=== PATIENT | female | born 1960 | race Caucasian/White ===

== ENCOUNTER → 2016-05-06 | Outpatient (CLI) | payer OTHER ==
--- NOTE | 2016-05-06 17:30 | MR ---
EXAMINATION TYPE: MR lumbar spine wo con DATE OF EXAM: 05/06/2016 9:18 AM COMPARISON: NONE HISTORY: Low back pain TECHNIQUE: Multiplanar, multisequence images of the lumbar spine were acquired. L1-L2: Normal disc appearance without desiccation. No herniation, protrusion or disc bulging. No ca nal stenosis is present. Foramina are patent bilaterally. L2-L3: Moderate degenerative disc disease and broad-based right paracentral and far right lateral dis c protrusion. There is moderate right-sided foraminal encroachment with possible nerve root compressi on. L3-L4: Facet arthropathy and degenerative disc disease with Schmorl's nodes. Circumferential disc bul ging with mild bilateral foraminal encroachment but no canal stenosis or focal herniation. L4-L5: Circumferential disc bulging and facet arthropathy with ligamentum flavum hypertrophy. Mild bi lateral foraminal encroachment. Borderline canal stenosis. L5-S1: Normal disc appearance without desiccation. No herniation, protrusion or disc bulging. No ca nal stenosis is present. Foramina are patent bilaterally. Mild hypertrophic change of the facets Lumbar segments are intact. No paraspinal masses are identified. Conus medullaris has a normal appe arance. Multiple gallstones incidentally noted. IMPRESSION: 1. Disc broad-based protrusion L2-L3 paracentrally and laterally to the right resulting in mass effec t upon the nerve root within the right neural foramina. Correlate for radiculopathy at this level. 2. Disc bulging L3-4 and L4-L5 with borderline canal stenosis L4-5. Bilateral mild foraminal encroach ment at both levels. 3. Cholelithiasis
== END | disposition home or self-care (01) ==
LOC: RADMRIMAIN 08:10
PROVIDERS: ATTEND Orthopaedic Surgery Orthopaedic Surgery of the Spine
DX: M48.06 Spinal stenosis, lumbar region (principal); M99.73 Connective tissue and disc stenosis of intervertebral foramina of lumbar region; M51.16 Intervertebral disc disorders with radiculopathy, lumbar region
CPT/HCPCS: 72148

== ENCOUNTER 2016-10-16 08:34 | Emergency (ER) | payer OTHER ==
[2016-10-16 08:45] VITALS: BP 134/76; PULSE 83; RESP 18; TEMP 98.7
--- NOTE | 2016-10-16 09:08 | ED ---
General Adult HPI - General Chief complaint: Extremity Injury, Lower Stated complaint: Back Pain, muscle spasms Time Seen by Provider: 10/16/16 08:37 Source: patient, RN notes reviewed Mode of arrival: EMS Limitations: no limitations - History of Present Illness Initial comments: Patient 56-year-old female who presents emergency room today with a chief complaint of increased right hip pain. She does admit this is been ongoing over the last few weeks. Denies any injury or trauma to the area. Does admit that she had an MRI back in May of her lower back. States she feels pain that radiates down the right leg with some numbness and tingling down to her toes. She does admit that she has sensation but feels different compared to the other side. Denies any bowel or bladder incontinence retention. Denies any saddle anesthesia. Does admit the pain is worse with certain movements of flexion and extension at the right hip. Patient states was having increased pain this morning and did take one of her 's Flexeril and Liberty which did give her some relief. She states she's much more comfortable at this time currently rating her pain 4/10. She states tonight wanting any further medications at this time. Patient also admits that she did make an appointment with her orthopedic doctor and has an appointment at 10:30 this morning and would like to make that appointment. Patient denies any recent fever, chills, shortness of breath, chest pain, abdominal pain, nausea or vomiting, dysuria or hematuria, constipation or diarrhea, headaches or visual changes, or any other complaints. - Related Data Home Medications Medication Instructions Recorded Confirmed FLUoxetine HCL [PROzac] 80 mg PO DAILY 10/16/16 10/16/16 Insulin Glargine,Hum.rec.anlog 20 units SQ HS 10/16/16 10/16/16 [Jojo Valero] Losartan (Unknown Dose) 1 tab PO DAILY 10/16/16 10/16/16 Rosuvastatin Calcium [Crestor] 5 mg PO DAILY 10/16/16 10/16/16 metFORMIN HCL 1,000 mg PO BID 10/16/16 10/16/16 Allergies Allergy/AdvReac Type Severity Reaction Status Date / Time No Known Allergies Allergy Verified 10/16/16 09:10 Review of Systems ROS Statement: Those systems with pertinent positive or pertinent negative responses have been documented in the HPI. ROS Other: All systems not noted in ROS Statement are negative. Past Medical History Past Medical History: Diabetes Mellitus, Hyperlipidemia, Hypertension History of Any Multi-Drug Resistant Organisms: None Reported Past Surgical History: No Surgical Hx Reported Past Psychological History: No Psychological Hx Reported Smoking Status: Never smoker Past Alcohol Use History: Rare Past Drug Use History: None Reported General Exam - General Exam Comments Initial Comments: General: The patient is awake and alert, in no distress, and does not appear acutely ill. Eye: Pupils are equal, round and reactive to light, extra-ocular movements are intact. No nystagmus. There is normal conjunctiva bilaterally. No signs of icterus. Ears, nose, mouth and throat: There are moist mucous membranes and no oral lesions. Neck: The neck is supple, there is no tenderness or JVD. Cardiovascular: There is a regular rate and rhythm. No murmur, rub or gallop is appreciated. Respiratory: Lungs are clear to auscultation, respirations are non-labored, breath sounds are equal. No wheezes, stridor, rales, or rhonchi. Musculoskeletal: Normal ROM, no tenderness. No appearance of thoracic and lumbar spine with no step-offs forms is appreciated. No tenderness in the midline of the spinous processes. Patient does have mild tenderness paravertebrally to the right lower lumbar. Strength 5/5. Sensation intact. Pulses equal bilaterally 2+. Neurological: A&O x 3. CN II-XII intact, There are no obvious motor or sensory deficits. Coordination appears grossly intact. Speech is normal. Skin: Skin is warm and dry and no rashes or lesions are noted. Psychiatric: Cooperative, appropriate mood & affect, normal judgment. Limitations: no limitations Course Vital Signs 10/16/16 08:40 Temperature 98.7 F Pulse Rate 83 Respiratory 18 Rate Blood Pressure 134/76 O2 Sat by Pulse 97 Oximetry Medical Decision Making - Medical Decision Making Case discussed in detail with attending physician Dr. Bryson. X-ray reviewed and negative for any acute fracture dislocation. Patient does have an appointment with orthopedic doctor in less than an hour. Will be discharged advised follow- up with orthopedics for further evaluation. Patient states understanding and is in agreement. Disposition Clinical Impression: Hip pain Disposition: HOME SELF-CARE Condition: Good Instructions: Hip Pain (ED) Additional Instructions: Please follow-up with orthopedic physician appointment today. Please return to emergency room if the symptoms increase or worsen or for any other concerns. Referrals: Diane Chairez DO [Primary Care Provider] - 1-2 days Time of Disposition: 09:36
--- NOTE | 2016-10-16 09:52 | XR ---
EXAMINATION TYPE: XR Hip RT and AP Pelvis , 3 VIEWS DATE OF EXAM ORDERED: 10/16/2016 HISTORY: Pain. FINDINGS: No fracture, dislocation or other acute osseous lesion is seen. There is vascular calcifica tion. There is mild degenerative change within the hip.. IMPRESSION: NO ACUTE OSSEOUS LESION.
== END 2016-10-16 09:48 | disposition home or self-care (01) ==
LOC: EC 08:34
DX: M25.551 Pain in right hip (principal); M54.9 Dorsalgia, unspecified; R20.0 Anesthesia of skin; E78.5 Hyperlipidemia, unspecified; E11.9 Type 2 diabetes mellitus without complications; I10 Essential (primary) hypertension; Z79.4 Long term (current) use of insulin; Z79.899 Other long term (current) drug therapy; Z79.84 Long term (current) use of oral hypoglycemic drugs
CPT/HCPCS: 73502; 99284

== ENCOUNTER → 2019-10-27 | Outpatient (CLI) | payer BC ==
--- NOTE | 2019-10-30 09:53 | MM ---
Reason for exam: screening (asymptomatic). Last mammogram was performed 6 years and 9 months ago. History: Patient is postmenopausal and had first child at age 31. Benign stereotactic core biopsy of the right breast, May 18, 2003. Core biopsy of the right breast. Took hormonal contraceptives for 17 years. Physical Findings: A clinical breast exam by your physician is recommended on an annual basis and results should be correlated with mammographic findings. MG Screening Mammo w CAD Bilateral CC and MLO view(s) were taken. Prior study comparison: January 31, 2013, bilateral digital screening mammo w/CAD. September 26, 2007, bilateral digital screening mammogram. The breast tissue is heterogeneously dense. This may lower the sensitivity of mammography. Finding: There are indeterminate, suspicious calcifications in both breasts, 8-9cm from the nipple on left breast and 8cm from the nipple on right breast. ASSESSMENT: Incomplete: need additional imaging evaluation, BI-RAD 0 RECOMMENDATION: Special view mammogram of both breasts. [facility] will attempt to contact patient to return for supplemental views.
== END | disposition home or self-care (01) ==
LOC: RADMAMWWP 08:56
PROVIDERS: ATTEND Family Medicine
DX: Z12.31 Encounter for screening mammogram for malignant neoplasm of breast (principal)
CPT/HCPCS: 77067

== ENCOUNTER → 2019-11-13 | Outpatient (CLI) | payer BC ==
--- NOTE | 2019-11-13 15:02 | MM ---
Reason for exam: additional evaluation requested from abnormal screening. Last mammogram was performed 1 month ago. History: Patient is postmenopausal and had first child at age 31. Benign stereotactic core biopsy of the right breast, May 18, 2003. Core biopsy of the right breast. Took hormonal contraceptives for 17 years. Physical Findings: Nurse did not find any significant physical abnormalities on exam. MG Work Up Mamm w CAD BILAT Bilateral CC with magnification, LM with magnification, and LM view(s) were taken. Prior study comparison: October 27, 2019, bilateral MG screening mammo w CAD. January 31, 2013, bilateral digital screening mammo w/CAD. Finding: There is persistent new heterogeneous calcifications in the lower inner quadrant, middle position of the left breast. Right grouped calcifications course margins increased in number but suspected benign dystrophic calcifications. These results were verbally communicated with the patient and result sheet given to the patient on 11/13/19. ASSESSMENT: Probably benign, BI-RAD 3 finding in the right breast. Suspicious, BI-RAD 4 abnormality in the left breast. RECOMMENDATION: Stereotactic core biopsy of the left breast. (1-2 sites sampler discretion) Called Dr. Rausch's office with mammographic findings and has scheduled an appointment for the patient for 12/22/19 at 2:[address] Hennessy. Biopsy scheduled for 12/28/19 at 8:00. PRELIMINARY REPORT CALLED AND FAXED TO DR. HENNESSY ON 11/13/19. Follow-up diagnostic mammogram of the right breast in 6 months. CALEB
== END | disposition home or self-care (01) ==
LOC: RADMAMWWP 13:30
PROVIDERS: ATTEND Family Medicine
DX: R92.8 Other abnormal and inconclusive findings on diagnostic imaging of breast (principal)
CPT/HCPCS: 77066

== ENCOUNTER → 2019-12-22 | Outpatient (CLI) | payer BC ==
[2019-12-22 14:21] VITALS: BP 128/77; PULSE 88; RESP 18; TEMP 98.4
--- NOTE | 2019-12-22 15:01 | P.GSHP ---
History of Present Illness H&P Date: 12/22/19 Chief Complaint: abnormal mammogram Tylor is a 59 year old white female seen in consultation for DR. Gonzalez with a complaint of bilateral breast microcalcifications. She underwent a routine screening mammogram on 10-27-19, she was recommended to undergo a bilateral diagnostic mammogram. This was performed on 8319. In the right breast she had some grouped calcifications which were felt to be coursing repeat right breast mammogram in 6 months was recommended. In the left breast she was noted to have persistent new heterogeneous calcifications in the lower inner quadrant for which stereotactic core biopsy was recommended. 1-2 sites to be sampled. The patient herself does not report any lumps masses or nodules in either breast. She is not complaining of any nipple discharge or skin changes. She is not reporting any recent trauma or infection in the breast. She had a prior core biopsy of the left breast which was benign many years ago. Family History: none Hormonal History: menarche: 10 , 1 Ab, first born at 30, breast fed: no menopause: ablation 48 BCP: 14 years hormones: none Surgical history: Cervical spine Medical history: HTN DM Social history: Smoke: Stopped 13 years ago Alcohol: Occasional Drugs: Marijuana several times a month - Constitutional Constitutional: Denies chills, Denies fever - EENT Eyes: denies blurred vision, denies pain Ears: deny: decreased hearing, tinnitus Ears, nose, mouth and throat: Denies headache, Denies sore throat - Breasts Breasts: bilateral: as per HPI - Cardiovascular Cardiovascular: Reports high blood pressure, Denies chest pain, Denies shortness of breath - Respiratory Respiratory: Denies cough, Denies 7 - Gastrointestinal Gastrointestinal: Denies abdominal pain, Denies diarrhea, Denies nausea, Denies vomiting - Menstruation Menstruation: Reports postmenopausal - Musculoskeletal Comment: Cervical spine surgery Musculoskeletal: Reports myalgias - Integumentary Integumentary: Denies pruritus, Denies rash - Neurological Neurological: Reports numbness, Reports weakness - Psychiatric Psychiatric: Reports anxiety - Endocrine Endocrine: Denies fatigue, Denies weight change - Hematologic/Lymphatic Hematologic/Lymphatic: Reports as per HPI - Allergic/Immunologic Allergic/Immunologic: Reports as per HPI Past Medical History Past Medical History: Diabetes Mellitus, Hyperlipidemia, Hypertension History of Any Multi-Drug Resistant Organisms: None Reported Past Surgical History: Back Surgery Additional Past Surgical History / Comment(s): through neck 2019 Past Anesthesia/Blood Transfusion Reactions: No Reported Reaction Past Psychological History: No Psychological Hx Reported Smoking Status: Former smoker Past Alcohol Use History: Rare Past Drug Use History: None Reported - Past Family History Mother Family Medical History: No Reported History Father Family Medical History: CVA/TIA, Diabetes Mellitus Medications and Allergies Home Medications Medication Instructions Recorded Confirmed Type FLUoxetine HCL [PROzac] 80 mg PO QAM 10/16/16 12/22/19 History Insulin Glargine,Hum.rec.anlog 20 units SQ HS 10/16/16 12/22/19 History [Toujeo Solostar] Rosuvastatin Calcium [Crestor] 5 mg PO QAM 10/16/16 12/22/19 History metFORMIN HCL 1,000 mg PO BID 10/16/16 12/22/19 History Insulin Regular, Human [NovoLIN R] 6 unit SQ TID 12/12/19 12/22/19 History Losartan [Cozaar] 25 mg PO QAM 12/22/19 12/22/19 History Allergies Allergy/AdvReac Type Severity Reaction Status Date / Time No Known Allergies Allergy Verified 12/22/19 14:15 Surgical - Exam Vital Signs Temp Pulse Resp BP Pulse Ox 98.4 F 88 18 128/77 97 12/22/19 14:18 12/22/19 14:18 12/22/19 14:18 12/22/19 14:18 12/22/19 14:18 BMI 29.9 - General well developed, well nourished, no distress - Eyes normal ocular movement - ENT no hearing loss, no congestion - Neck no masses, trachea midline - Respiratory normal respiratory effort, clear to auscultation - Cardiovascular Rhythm: regular Heart Sounds: normal: S1, S2 - Abdomen Abdomen: soft, non tender, no guarding, no rigid, no rebound - Integumentary normal turgor - Neurologic no disoriented, no combative - Musculoskeletal normal gait - Psychiatric oriented to time, oriented to person, oriented to place, speech is normal, memory intact breast exam: BRA: 38C inspection: bilateral nipple inversion palpation: Right breast: Multi-positional exam no dominant masses or nodules of concern, fibrocystic breast changes Right axilla: No adenopathy of concern Left breast: Multi-positional exam no dominant masses or nodules of concern, fibrocystic changes Left axilla: No adenopathy of concern Results Mammogram results reviewed Assessment and Plan Assessment: Impression: 1. Mammographic abnormality left breast for which stereotactic core biopsy recommended 2. Mammographic right breast calcifications for which repeat right breast mammogram in 6 months is recommended 3. Fibrocystic breast changes 4. Hypertension 5. Diabetes 6. Anxiety Plan: 1. sterotactic core biopsy left breast 2. Right breast repeat mammogram in 6 months The skin benefits of the procedure discussed with the patient. These include but are not limited to bleeding, infection, reaction to the anesthetic. She understands of the biopsy were to be discordant may require an open biopsy. She wishes to proceed. We have talked about alternatives which would include watchful waiting versus operative resection and but have not recommended these. CC: DR. Rausch encounter 30 minutes, > 50% of time in planning and counselling
== END | disposition home or self-care (01) ==
LOC: WWCWWP 14:01
PROVIDERS: ATTEND Surgery
DX: Z53.9 Procedure and treatment not carried out, unspecified reason (principal)

== ENCOUNTER → 2019-12-28 | Day surgery (SDC) | payer BC ==
[2019-12-28 07:38] VITALS: RESP 16
--- NOTE | 2019-12-28 08:31 | P.OP ---
Date of Procedure: 12/28/19 Preoperative Diagnosis: Microcalcifications of concern left breast Postoperative Diagnosis: Same Procedure(s) Performed: Stereotactic core biopsy left breast Anesthesia: local Surgeon: Nika Harman Pathology: other (Breast tissue) Indications for Procedure: Microcalcifications of concern lower inner quadrant middle position left breast Operative Findings: Microcalcifications noted in specimen Description of Procedure: The patient is a 59-year-old white female who had a mammogram revealing h eterogeneous calcifications lower inner quadrant middle position of the left breast. It was recommended she undergo left breast stereotactic core biopsy. The risks and benefits of the procedure were discussed with the patient and she wished to proceed. The patient was brought to the stereotactic core biopsy room. She was positioned prone on the lo-rad Table. Inspector Electromechanical film was obtained. The calci fications of concern were identified. These calcifications were targeted. A medial to lateral approach was utilized. The breast was prepped using Betadine. 20 mL of 1% lidocaine was used to anesthetize the area of concern. A 9-gauge vacuum-assisted core rotating biopsy needle was driven to the correct coordinates. The needle was fired. Post fire film revealed the needle to be in the correct location. 8 specimens were obtained. Radiograph of the specimen revealed the area of concern had been sampled. A secure marked Top-Hat clip was placed. The specimen was sent to pathology. The patient tolerated the procedure in stable condition. She will follow with Dr. Segundo in 1 week.
[2019-12-28 08:46] VITALS: BP 131/81; PULSE 77; TEMP 98
--- NOTE | 2019-12-28 15:36 | MM ---
Stereotactic core biopsy left breast. HISTORY: Microcalcifications. The calcifications in question within the left breast were targeted by the undersigned. The examinat ion was performed by the surgeon. Specimen radiograph demonstrates numerous calcifications within th e specimen submitted. Post procedural mammogram demonstrates appropriate deployment of radiopaque cl ip marker. The patient tolerated the procedure well and left the department in stable condition. Pa thology results are pending. IMPRESSION: Successful stereotactic core biopsy left breast with pathology results pending.
== END ==
LOC: RADMAMWWP 07:27
PROVIDERS: ATTEND Surgery
DX: D05.12 Intraductal carcinoma in situ of left breast (principal); N64.1 Fat necrosis of breast
CPT/HCPCS: 19081; A4648; J2001; 88305; 88341; 88342

== ENCOUNTER → 2020-01-04 | Outpatient (CLI) | payer BC ==
[2020-01-04 16:29] VITALS: BP 132/77; PULSE 87; RESP 18; TEMP 98.4
--- NOTE | 2020-01-04 16:57 | P.PN ---
Subjective Progress Note Date: 01/04/20 Principal diagnosis: Right breast DCIS Tylor is a 60-year-old white female status post left breast sterotactic core biopsy on 12-28-19. Pathology revealed grade 3 DCIS it was ER/N[place] positive. She tolerated the procedure without difficulty. Of concern is the fact that she has group of calcifications in the right breast which were to be watched with repeat 6 month mammogram. After discussion we may recommend right breast stereotactic core biopsy. Additionally the extent of calcifications in the left breast will be reviewed with radiology. Objective - Vital Signs Vital signs: Vital Signs Temp 98.4 F 01/04/20 16:24 Pulse 87 01/04/20 16:24 Resp 18 01/04/20 16:24 BP 132/77 01/04/20 16:24 Pulse Ox 96 01/04/20 16:24 Intake & Output 01/03/20 01/04/20 01/04/20 18:59 06:59 18:59 Weight 78.925 kg - Exam BMI 29.9 - Constitutional General appearance: Present: cooperative - EENT Eyes: Present: EOMI ENT: Present: hearing grossly normal - Neck Neck: Present: normal ROM - Respiratory Respiratory: bilateral: CTA - Cardiovascular Rhythm: regular Heart sounds: normal: S1, S2 - Integumentary Integumentary Comment(s): Mild ecchymosis at biopsy site, no hematoma or infection Integumentary: Present: normal turgor Assessment and Plan Assessment: Impression: 1. 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 ER nad [place] positive DCIS 3. Questionable calcifications in the right breast consider stereo biopsy 4. Consider need for MRI to determine extent of disease in the left breast were reviewed with radiology Plan: 1. Review radiographs with radiology consider right breast stereo biopsy 2. Review with radiology to determine extent of disease in the left breast 3. We've discussed lumpectomy versus mastectomy and the patient wishes a lumpectomy again final recommendation after review with radiology CC: Dr. Rausch
--- NOTE | 2020-01-05 08:29 | P.PN ---
Progress Note - Text Progress Note Date: 01/05/20 I have reviewed Tylor's mammograms with Dr. Weiss from radiology. Secondary to the pathologic diagnosis of DCIS with some comedo form necrosis grade 3 after review of the left mammogram there are 2 additional areas for which it has been recommended stereotactic core biopsy be performed. In addition the area on the right which was going to be watched for 6 months is recommended to have a stereo core biopsy. We've also discussed the benefit of an MRI and this will be scheduled as well.
== END | disposition home or self-care (01) ==
LOC: WWCWWP 16:09
PROVIDERS: ATTEND Surgery
DX: Z53.9 Procedure and treatment not carried out, unspecified reason (principal)

== ENCOUNTER → 2020-01-12 | Day surgery (SDC) | payer BC ==
[2020-01-12 07:19] VITALS: RESP 16
[2020-01-12 10:51] VITALS: BP 118/75; PULSE 73; TEMP 98
--- NOTE | 2020-01-12 11:18 | P.PCN ---
Date of Procedure: 01/12/20 Preoperative Diagnosis: Radiographic abnormality right breast, 2 sites of concern in the left breast Postoperative Diagnosis: Same Procedure(s) Performed: Stereotactic core biopsy right breast, unable to identify areas of concern in the left breast on the stereo table biopsy for these areas was canceled Anesthesia: local Surgeon: Nika Harman Pathology: other (Right breast tissue) Condition: stable Disposition: same day Indications for Procedure: Mammographic abnormality right breast Operative Findings: Core biopsy with microcalcifications of concern Description of Procedure: The patient is a 60-year-old white female who underwent a stereotactic core biopsy of the left breast approximately a week and a half ago. This revealed ductal carcinoma in situ with comedonecrosis. After we review of the radiographs with the radiologist there were 2 additional areas in the left breast for which attempt at core biopsy was recommended and one in the right breast. She presents for stereo biopsy of 3 areas to in the left and one in the right breast. The right breast was approached initially. Risks and benefits of the procedure were discussed with the patient she understood and wished to proceed. Patient was positioned on the stereotactic core biopsy table. The scope from was obtained. The area of concern in the right breast was identified. A medial to lateral approach was utilized. The area of concern was targeted. A 9-gauge vacuum-assisted core rotating biter of seen needle was utilized. The skin was prepped using Betadine. 16 mL of 1% lidocaine were used to anesthetize the area of concern. The needle was driven to the correct coordinates. It was fired and a post-fire film was obtained. The specimens were obtained and radiograph of the specimen revealed the area of concern had been sampled. A top to secure bebo clip was placed. The patient tolerated this portion of the procedure in stable condition. Following this the 2 areas of concern in the left breast were attempted to be identified. They were unable to be clearly identified on the stereo table and therefore the procedure was terminated on the left breast. The patient is going to have a breast MRI. The right breast specimen was sent to pathology. The patient will follow-up with Dr. Segundo next week. Impression/plan: 1. Stereotactic core biopsy right breast await results 2. 2 areas of concern in the left breast in addition to the biopsy-proven DCIS; patient is going to have a breast MRI and further recommendation to follow the MRI CC: Dr. Rausch
--- NOTE | 2020-01-12 14:12 | MM ---
Stereotactic core biopsy right breast. HISTORY: Microcalcifications. The calcifications in question within the right breast were targeted by the undersigned. The examination was performed by the surgeon. Specimen radiograph demonstrates numerous calcifications within the specimen submitted. Post procedural mammogram demonstrates appropriate deployment of radiopaque clip marker. The patient tolerated the procedure well and left the department in stable condition. Pathology results are pending. IMPRESSION: Successful stereotactic core biopsy right breast with pathology results pending. Pathology Results: Benign RIGHT BREAST, STEREOTACTIC CORE BIOPSY: Fibroadenomatoid hyperplasia with calcifications in a background of fibrocystic changes. Recommendation Follow up mammogram of the right breast in 6 months. CALEB
--- NOTE | 2020-01-12 14:19 | MM ---
MG discontinued stereo core LT HISTORY: Microcalcifications. DCIS. There is a suspicious group of microcalcifications far inner upper left breast. Multiple attempts wer e made at localizing the calcifications all of which proved unsuccessful. An additional vague group o f calcifications adjacent to recent site of biopsy also could not be localized. Needle localization i s recommended. IMPRESSION: UnSuccessful stereotactic core biopsy left breast. I do recommend needle localization wit h open biopsy of suspicious cluster inner upper left breast. Brachial needle localization could be pe rformed for additional calcifications adjacent to the recently sampled group within the left breast.
== END ==
LOC: RADMAMWWP 07:04
PROVIDERS: ATTEND Surgery
DX: D24.1 Benign neoplasm of right breast (principal); N60.11 Diffuse cystic mastopathy of right breast
CPT/HCPCS: 88305; 19081; A4648; J2001

== ENCOUNTER → 2020-01-19 | Outpatient (CLI) | payer BC ==
[2020-01-19 12:49] VITALS: BP 144/86; PULSE 74; RESP 12; TEMP 98
--- NOTE | 2020-01-19 13:45 | P.PN ---
Subjective Progress Note Date: 01/19/20 Principal diagnosis: DCIS left breast Tylor is a 60 year old white female status post stero core biopsy of the left breast performed on . 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 This is strongly ER/IA positive. The patient had 2 other areas of concern in the left breast for which attempted stereotactic core biopsy was performed on . The 2 additional areas in the left breast were unable to be identified on the stereo table. She did have a right breast stereo biopsy done on the same date which was benign fibroadenomatoid hyperplasia with calcifications and the background of fibrocystic changes. She tolerated the procedure without difficulty. She is going to meet with radiation oncology at this time to discuss possible radiation therapy. She is going to undergo breast MRI we are awaiting these results. Additionally her case is going to be presented at tumor board. Objective - Vital Signs Vital signs: Vital Signs Temp 98.0 F 01/19/20 12:43 Pulse 74 01/19/20 12:43 Resp 12 01/19/20 12:43 BP 144/86 01/19/20 12:43 Pulse Ox 97 01/19/20 12:43 Intake & Output 01/18/20 01/19/20 01/19/20 18:59 06:59 18:59 Weight 78.925 kg - Exam BMI 29.9 - Constitutional General appearance: Present: average body habitus - EENT Eyes: Present: EOMI ENT: Present: hearing grossly normal - Neck Neck: Present: normal ROM - Respiratory Respiratory: bilateral: CTA - Cardiovascular Rhythm: regular Heart sounds: normal: S1, S2 - Integumentary Integumentary Comment(s): right breasts: mild ecchymosis, no evidence of infection or hematoma - Musculoskeletal Musculoskeletal: Present: gait normal - Psychiatric Psychiatric: Present: A&O x's 3, appropriate affect, intact judgment & insight Assessment and Plan Assessment: Impression: 1. DCIS left breast on stereotactic core biopsy 2. 2 additional areas of microcalcification left breast which was unable to be biopsied via stereotactic core 3. Patient has MRI pending of both breasts 3. [facility] to core biopsy right breast benign Plan: 1. Patient is meeting with radiation oncology today 2. We will try to move up her MRI 3. Surgical procedure on the left breast is pending results of the stereo core biopsy 4. Patient is going to be presented at tumor board next week Cc: Dr. Rausch encounter 15 minutes, 50% of time in planning and counselling
== END | disposition home or self-care (01) ==
LOC: WWCWWP 12:32
PROVIDERS: ATTEND Surgery
DX: Z53.9 Procedure and treatment not carried out, unspecified reason (principal)

== ENCOUNTER → 2020-01-26 | Outpatient (CLI) | payer BC ==
--- NOTE | 2020-01-30 08:06 | BMR ---
EXAMINATION TYPE: MR breast BILAT wo/w con DATE OF EXAM: 01/26/2020 COMPARISON: 3-D mammogram October 27, 2019 BI-RADS 0. Diagnostic bilateral breast mammogram November 12 BI-RADS 3 right. BI-RADS 4 left. HISTORY: Breast ca. DCIS stereotactic guided biopsy left breast December 28, 2019. Benign stereotact ic guided core biopsy right breast January 12, 2020 CONTRAST: Multiplanar, multisequence images of the breasts were acquired utilizing 7.5 mL intravenous Gadavist gadolinium contrast. TECHNIQUE: A series of fat and water weighted images in the long and short axis views of both breasts are obtained in conjunction with dynamic contrast MRI with subtraction technique. Three-dimensional and additional postprocessing imaging is created on independent workstation and reviewed during offi cial interpretation of this study. FINDINGS: Persistent heterogeneously dense fibroglandular tissue is noted bilaterally. T2 and STIR we ighted images show occasional tiny thin-walled cysts scattered throughout the dense fibroglandular ti ssue bilaterally. Benign-appearing bilateral axillary lymph nodes are present. Dynamic postcontrast i maging shows moderate to severe slightly asymmetric background enhancement left greater than right wi th some tiny nodularity identified bilaterally. This makes evaluation markedly suboptimal. Delayed dy namic postcontrast imaging shows no suspicious enhancing intramammary adenopathy bilaterally. With regards to the right breast. Artifact from biopsy clip is not well identified in the upper inner quadrant. There is linear T1 hypointensity and T2 hyperintensity with central round area of low T2 s ignal likely reflecting biopsy clip seen best on postcontrast imaging 72 series 801 for reference. Co rresponding image 258 series 701. No pathologic enhancement or definitive focal enhancing masses iden tified. No suspicious skin thickening. The chest wall is intact. With regards to the left breast artifact from biopsy clip is present at level of nipple medially imag e 32 series 601. On subtraction images there is a 13 x 9 mm area of nonmass enhancement surrounding t he artifact from biopsy clip. This shows benign progressive enhancement on dynamic postcontrast image s. Slight low T1 and T2 signal surrounds biopsy clip. Posterior and lateral and just superior to this area there is a second area of irregular low T1 and increased T2 signal on the most medial margin of the most posterior medial fibroglandular tissue in the left breast measuring roughly 13 x 5 mm that shows postcontrast enhancement. This also shows benign progressive postcontrast enhancement on dynami c images. Remainder of left breast shows no suspicious skin thickening. Chest wall is intact. No suspicious incidental findings noted. IMPRESSION: Suboptimal study with significant bilateral background enhancement including multifocal a reas of tiny nodular enhancement. The area of biopsy-proven DCIS shows benign progressive enhancement with focal area of nonmass enhancement identified surrounding clip in the left breast. Second area o f similar nonmass enhancement noted as detailed above. BI-RADS 2 benign findings right breast BI-RADS 6 biopsy-proven cancer left breast. Advise left breast ultrasound follow-up with particular a ttention to the C zone just above the nipple 9 to 10:00 position deep central aspect at area of secon d slightly more prominent nonmass enhancement.
== END | disposition home or self-care (01) ==
LOC: RADMRIMAIN 06:27
PROVIDERS: ATTEND Surgery
DX: D05.12 Intraductal carcinoma in situ of left breast (principal); R92.8 Other abnormal and inconclusive findings on diagnostic imaging of breast
CPT/HCPCS: 77049; C8937; A9585

== ENCOUNTER → 2020-02-01 | Outpatient (CLI) | payer BC ==
[2020-02-01 15:27] VITALS: BP 119/76; PULSE 88; RESP 18; TEMP 98.6
--- NOTE | 2020-02-01 15:49 | P.PN ---
Subjective Progress Note Date: 02/01/20 Principal diagnosis: left breast DCIS Tylor is a 60 year old white female seen in consultation for DR. Gonzalez with a complaint of bilateral breast microcalcifications. She underwent a routine screening mammogram on 10-27-19, she was recommended to undergo a bilateral diagnostic mammogram. This was performed on 83. In the right breast she had some grouped calcifications which were felt to be coursing repeat right breast mammogram in 6 months was recommended. In the left breast she was noted to have persistent new heterogeneous calcifications in the lower inner quadrant for which stereotactic core biopsy was recommended. 1-2 sites to be sampled. The patient herself does not report any lumps masses or nodules in either breast. She is not complaining of any nipple discharge or skin changes. She is not reporting any recent trauma or infection in the breast. She had a prior core biopsy of the left breast which was benign many years ago. She underwent a left breast needle core biopsy on , this revealed ductal carcinoma in situ, grade 3 with focal comedo form necrosis. Upon review of the radiographs a second area of concern was noted in the left breast as well as a area of concern in the right breast. She underwent a stereo biopsy of the area of concern in the right breast on 20 which revealed fibroadenomatoid hyperplasia with calcifications in a background of fibrocystic changes. Attempt to do a stereo biopsy of the additional area in the left breast was unsuccessful secondary to the location of the lesion. She then underwent a bilateral breast MRI on [id number]. This revealed benign findings in the right breast, biopsy-prov en cancer left breast with a second area which left breast ultrasound was recommended with attention to the seasonal just above the nipple in 9 to 10 o'clock position central aspect. This upon review with radiology corresponded to the second area of calcifications. Additionally an ultrasound was performed and the area was not seen on ultrasound. After review with radiology Dr. sousa she believes that he can do needle localization of the calcifications in the left breast which were previously biopsied and known to be DCIS as well as the second area of calcifications near the chest wall. The second areas also corresponds to the MRI findings. No other lesions of concern were noted on the MRI. Family History: none Hormonal History: menarche: 10 , 1 Ab, first born at 30, breast fed: no menopause: ablation 48 BCP: 14 years hormones: none Surgical history: Cervical spine no restrictions Medical history: HTN DM Social history: Smoke: Stopped 13 years ago Alcohol: Occasional Drugs: Marijuana several times a month - Constitutional Constitutional: Denies chills, Denies fever - EENT Eyes: denies blurred vision, denies pain Ears: deny: decreased hearing, tinnitus Ears, nose, mouth and throat: Denies headache, Denies sore throat - Breasts Breasts: bilateral: as per HPI - Cardiovascular Cardiovascular: Reports high blood pressure, Denies chest pain, Denies shortness of breath - Respiratory Respiratory: Denies cough, Denies 7 - Gastrointestinal Gastrointestinal: Denies abdominal pain, Denies diarrhea, Denies nausea, Denies vomiting - Menstruation Menstruation: Reports postmenopausal - Musculoskeletal Comment: Cervical spine surgery Musculoskeletal: Reports myalgias - Integumentary Integumentary: Denies pruritus, Denies rash - Neurological Neurological: Reports numbness, Reports weakness - Psychiatric Psychiatric: Reports anxiety - Endocrine Endocrine: Denies fatigue, Denies weight change - Hematologic/Lymphatic Hematologic/Lymphatic: Reports as per HPI - Allergic/Immunologic Allergic/Immunologic: Reports as per HPI Past Medical History Past Medical History: Diabetes Mellitus, Hyperlipidemia, Hypertension History of Any Multi-Drug Resistant Organisms: None Reported Past Surgical History: Back Surgery Additional Past Surgical History / Comment(s): through neck 2019 Past Anesthesia/Blood Transfusion Reactions: No Reported Reaction Past Psychological History: No Psychological Hx Reported Smoking Status: Former smoker Past Alcohol Use History: Rare Past Drug Use History: None Reported Objective - Vital Signs Vital signs: Vital Signs Temp 98.6 F 02/01/20 15:23 Pulse 88 02/01/20 15:23 Resp 18 02/01/20 15:23 BP 119/76 02/01/20 15:23 Pulse Ox 94 L 02/01/20 15:23 Intake & Output 01/31/20 02/01/20 02/01/20 18:59 06:59 18:59 Weight 79.379 kg - Exam BMI 30 - Constitutional General appearance: Present: no acute distress - EENT Eyes: Present: EOMI ENT: Present: hearing grossly normal - Neck Neck: Present: normal ROM - Respiratory Respiratory: bilateral: CTA - Cardiovascular Rhythm: regular Heart sounds: normal: S1, S2 - Gastrointestinal Gastrointestinal Comment(s): no guarding or rebound General gastrointestinal: Present: soft - Integumentary Integumentary: Present: normal turgor - Musculoskeletal Musculoskeletal: Present: gait normal - Psychiatric Psychiatric: Present: A&O x's 3, appropriate affect, intact judgment & insight - Additional findings Additional findings: Breast exam: Bra 38C inspection: Bilateral nipple inversion Palpation: Right breast: Multiple positional exam no dominant masses or nodules of concern, fibrocystic breast changes Right axilla: No adenopathy of concern Left breast: Multiple positional exam no dominant masses or nodules of concern, fibrocystic changes Left axilla: No adenopathy of concern In the left breast there is a small puncture site where the stereo biopsy was performed this is healing well with no evidence of hematoma or infection Assessment and Plan Assessment: Impression: 1. Mammographic abnormality left breast for which stereotactic core biopsy revealed DCIS, second area of microcalcifications near the chest wall unable to be sampled by stereo biopsy this believe this can be reviewed moved with needle local excisional biopsy 2. Right breast calcifications sampled these were benign fibrocystic disease 3. MRI reviewed no lesions of concern in the right breast lesions of the left breast corresponding to the known DCIS as well as the secondary of microcalcifications 4. Hypertension 5. Diabetes 6. Anxiety Plan: 1. Needle localization of 2 areas of concern in the left breast with partial mastectomy, possible onco plastic tissue transfer 2. [place] node injection sentinel node biopsy possible axillary node dissection 3. Patient to follow with radiation and medical oncology 4. Patient's case was presented at tumor board The patient is aware that she has multicentric breast disease. The second lesion in the left breast near the chest wall has not been sampled, the patient understands that this may have some invasive cancer however at this time she does not want to have a mastectomy and wishes an attempt at lumpectomy of both areas. She understands that she will have some cosmetic deformity to the breast. She was given the option of mastectomy with immediate reconstruction and is not interested at this time. Risks of the procedure include but are not limited to bleeding, infection, reaction to the anesthetic. If the margins were to be positive is possible she would need to have repeat surgery for reexcision of margins or recommendation for mastectomy. She understands and wishes to proceed. She is here with her for the discussion. I have marked on her breast the potential incision that I would make and this will be somewhat dependent on the bracketing for needle localization. CC: Dr. Rausch encounter 15 minjutes, > 50% of time in planning and counselling
== END | disposition home or self-care (01) ==
LOC: WWCWWP 15:18
PROVIDERS: ATTEND Surgery
DX: Z53.9 Procedure and treatment not carried out, unspecified reason (principal)

== ENCOUNTER → 2020-02-01 | Outpatient (CLI) | payer BC ==
--- NOTE | 2020-02-06 09:45 | USB ---
Reason for exam: additional evaluation requested from prior study. History: Patient is postmenopausal, has history of breast cancer at age 59, and had first child at age 31. Benign MG stereo VAD BX RT of the right breast, January 12, 2020. MG discontinued stereo core LT of the left breast, January 12, 2020. Malignant MG stereo VAD BX LT of the left breast, December 28, 2019. Benign stereotactic core biopsy of the right breast, May 18, 2003. Core biopsy of the right breast. Took hormonal contraceptives for 17 years. Physical Findings: Nurse did not find any significant physical abnormalities on exam. US Breast Limited LT Technologist: Dianelys Galvez Left limited breast ultrasound including focal area of concern, retroareolar and axilla demonstrates a 1.6 x 0.8 x 0.9cm solid lesion with clip at 9 o'clock, biopsy proven DCIS and a 0.5 x 0.5 x 0.2cm cystic lesion at 11 o'clock. Case discussed with surgeon. These results were verbally communicated with the patient and result sheet given to the patient on 02/01/20. ASSESSMENT: Suspicious, BI-RAD 4 RECOMMENDATION: Surgical consultation of the left breast. Called office with mammographic findings and has scheduled an appointment for the patient for 02/01/[address] Harman. PRELIMINARY REPORT CALLED AND FAXED TO DR. HARMAN ON 02/06/20.
== END | disposition home or self-care (01) ==
LOC: RADUSWWP 13:34
PROVIDERS: ATTEND Surgery
DX: Z08 Encounter for follow-up examination after completed treatment for malignant neoplasm (principal); Z85.3 Personal history of malignant neoplasm of breast

== ENCOUNTER → 2020-02-13 | Day surgery (SDC) | payer BC ==
[~2020-02-13] MED LIST: DEXAMETHASONE SOD PHOSPHATE 4 MG/ML 1 ML VIAL IV ONE; HEPARIN SODIUM,PORCINE 5,000 UNIT/ML 1 ML VIAL SQ ONE; HYDROmorphone 0.5 MG/0.5 ML SYRINGE IVP PRN; LACTATED RINGERS 1,000 ML IV ONE; LACTATED RINGERS 1,000 ML IV SCH; LIDOCAINE 1% (10MG/ML) FOR IV START SQ ONE; LIDOCAINE 1% INJ 10MG/ML (20 ML MDV) ONE; LIDOCAINE 1% INJ 10MG/ML (20 ML MDV) SQ ONE; LIDOCAINE 1%-EPI 1:100,000 20 ML VIAL SQ ONE; MIDAZOLAM 2 MG/2 ML VIAL IV PRN; ONDANSETRON 4 MG/2 ML VIAL IVP ONE; PROPOFOL 10 MG/ML 20 ML VIAL IV ONE; Pre Op ABX Message 1 EACH MISC MISCELLANE ONE; SCOPOLAMINE 1.5MG/72HR PATCH TRANSDERM ONE; SUCCINYLCHOLINE CHLORIDE 100 MG/5 ML SYR IV ONE; ePHEDrine SULFATE/0.9% NACL/PF 50 MG/5 ML SYRINGE IV ONE; fentaNYL (PF) 50 MCG/ML 2 ML AMP ONE
[2020-02-13 09:35] VITALS: RESP 16
[2020-02-13 09:59] LABS: Glucose,Whole Blood 150 mg/dL (75-99)
--- NOTE | 2020-02-13 12:58 | NM ---
EXAMINATION TYPE: NM sentinel node injection DATE OF EXAM: 02/13/2020 COMPARISON: NONE HISTORY: 60 year-old female left breast cancer TECHNIQUE AND FINDINGS: The procedure of sentinel lymph node injection was explained to the patient. The benefits, alternatives, and risks were discussed. An informed consent was then obtained. Overlying skin is cleaned with sterile alcohol. Following this, 529 uCi Tc99m Tilmanocept was inject ed in the upper outer aspect of the left nipple intradermally. The patient tolerated the procedure well without any immediate complication. The patient was kept in the radiology department for short stay after the procedure and then taken to surgery for surgical p rocedure what is presumed intraoperative gamma probe will be used for sentinel lymph node detection. IMPRESSION: Left breast radiotracer injection for sentinel node localization as above.
--- NOTE | 2020-02-13 15:12 | P.OP ---
Date of Procedure: 02/13/20 Preoperative Diagnosis: Ductal carcinoma in situ, microcalcifications of concern second site and breast Postoperative Diagnosis: Same Procedure(s) Performed: [place] node biopsy, needle localization partial mastectomy of 2 areas of concern in the breast,onco-plastic tissue transfer Anesthesia: ASHLYA Surgeon: Nika Harman Estimated Blood Loss (ml): 15 IV fluids (ml): 1,200 Pathology: other ([place] lymph node, breast tissue) Condition: stable Disposition: same day Indications for Procedure: Ductal carcinoma in situ left breast, microcalcifications of concern posterior breast Operative Findings: Dense breast tissue Description of Procedure: [place] node biopsy needle Localization partial mastectomy of 2 sites left breast, (lower inner quadrant, and upper inner quadrant) Onco-plastic tissue transfer 128 cm Tylor is a 60-year-old white female who was diagnosed with a ductal carcinoma in situ of the left breast via stereo biopsy. A second area of microcalcifications close to the chest wall were identified and considered suspicious but were unable to be sampled by stereotactic biopsy secondary to the location. Therefore it was recommended that she have both areas localized and excision of these areas at the same time. Following localization of 2 areas of concern in the left breast and injection of lymphokine the patient was brought to the operating room. Following induction of general anesthesia the neoprobe was used to confirm that the lymphokine had traveled to the axillary basin. The patient was prepped and draped in a sterile fashion. An incision was made in the axilla. Dissection was carried to the deep axillary tissues. A deep lymph node which was radioactive was identified. This was removed using the Harmonic scalpel. The 10 second count was 16,440. The background count was 34. After being assured that hemostasis was attained the deep tissues were closed using 3-0 Vicryl suture. The skin was closed using 4-0 Monocryl. The area of the breast was then approached. The needle was positioned such that it was felt that an incision between the 2 would facilitate removal of both areas. The incision was made and dissection was carried in the anterior tissue planes to the superior needle. This was brought out into the wound. Careful dissection was performed around the needle to include the tip of the needle and posterior to the pectoralis major muscle. Dissection was then performed in a similar fashion for the inferior needle. The needle was brought into the wound and dissection was performed circumferentially around the needle with careful dissection being carried down to the pectoralis major muscle. Following this the specimen was removed and painted for orientation. Radiograph revealed that the area of concern had been removed. The wound was well irrigated. Titanium clips were placed for orientation two superior and one medial. The defect itself was 10 x 8 cm. The superior tissues mobilized were 8 x 3 cm and the inferior tissues were mobilized 8 x 3 cm. A total of 128 cm of tissue were mobilized. After assured that hemostasis was attained Surgicel and pyriform was placed. The 2 pillars of tissue were brought together using 3-0 Vicryl suture. The skin was reapproximated using 3-0 Vicryl suture in the sub cutaneous plane. Monocryl was used to close the subcuticular tissues. Steri-Strips were applied. All instrument and sponge counts were correct at the end of the case. The patient tolerated procedure in stable condition.
--- NOTE | 2020-02-13 15:15 | P.DS ---
Providers Attending physician: Nika Harman Primary care physician: Carlos Rausch Plan - Discharge Summary Discharge Rx Participant: No New Discharge Prescriptions: No Action Rosuvastatin Calcium [Crestor] 5 mg PO QAM Insulin Glargine,Hum.rec.anlog [Toujeo Solostar] 28 units SQ HS metFORMIN HCL 1,000 mg PO BID FLUoxetine HCL [PROzac] 80 mg PO QAM Insulin Regular, Human [NovoLIN R] 6 unit SQ AC-TID Losartan [Cozaar] 25 mg PO QAM Ascorbic Acid [Vitamin C] 500 mg PO DAILY Multivitamins, Thera [Multivitamin (formulary)] 1 tab PO DAILY L.acidoph,Paracasei, B.lactis [Probiotic] 1 each PO DAILY Discharge Medication List FLUoxetine HCL [PROzac] 80 mg PO QAM 10/16/16 [History] Insulin Glargine,Hum.rec.anlog [Toujeo Solostar] 28 units SQ HS 10/16/16 [History] Rosuvastatin Calcium [Crestor] 5 mg PO QAM 10/16/16 [History] metFORMIN HCL 1,000 mg PO BID 10/16/16 [History] Insulin Regular, Human [NovoLIN R] 6 unit SQ AC-TID 12/12/19 [History] Losartan [Cozaar] 25 mg PO QAM 12/22/19 [History] Ascorbic Acid [Vitamin C] 500 mg PO DAILY 02/05/20 [History] L.acidoph,Paracasei, B.lactis [Probiotic] 1 each PO DAILY 02/05/20 [History] Multivitamins, Thera [Multivitamin (formulary)] 1 tab PO DAILY 02/05/20 [History] Follow up Appointment(s)/Referral(s): Nika Harman MD [STAFF PHYSICIAN] - 1 Week Activity/Diet/Wound Care/Special Instructions: do not drive for 24 hours after discharge, or if unsig narcotic pain medication may shower after 48 hours wear bra at all times Discharge Disposition: HOME SELF-CARE
[2020-02-13 15:20] VITALS: TEMP 97
[2020-02-13 15:26] LABS: Glucose,Whole Blood 188 mg/dL (75-99)
--- NOTE | 2020-02-13 16:46 | MM ---
EXAMINATION TYPE: MG pre op needle loc LT, MG pre op loc each addl LT MG surgical specimen LT DATE OF EXAM: 02/13/2020 COMPARISON: Correlation MRI 01/26/2020 and mammogram 11/13/2019 CLINICAL HISTORY: 60 year-old female with biopsy-proven DCIS within the middle depth lower inner quadrant left breast. A second site of microcalcifications within the posterior upper inner quadrant left breast was not amenable to stereotactic core needle biopsy due to posterior location. This site is also being localized. TECHNIQUE: Needle localization with wire placement and surgical excision of area of concern in the left breast. FINDINGS: The procedure of needle localization with wire placement and than surgical excision was explained to the patient. Benefits, alternatives, and risks were discussed. An informed consent was then obtained. SITE A, posterior upper inner quadrant area of suspicious microcalcifications (that was not amenable to stereotactic biopsy). The shortest pathway for procedure was chosen. Shortest pathway was a medial approach. The overlying skin was prepped and draped in usual sterile fashion. Lidocaine was used as anesthetic into the skin and subcutaneous tissue up to the level of area of concern. A 9 cm Kopan's needle was used. It was placed via a medial approach under mammographic guidance. SITE B, middle depth lower inner quadrant biopsy proven DCIS. The shortest pathway for procedure was chosen. Shortest pathway was a medial approach. The overlying skin was prepped and draped in usual sterile fashion. Lidocaine was used as anesthetic into the skin and subcutaneous tissue up to the level of area of concern. A 7 cm Kopan's needle was used. It was placed via a medial approach under mammographic guidance. Subsequent 90 degrees mammogram show the needle to be in satisfactory position relative to the targeted area. At this point, wire was placed and the needle was withdrawn. The wire was fixed to patient's skin. Images were marked for surgeon. The patient tolerated the procedure well without any immediate complication. The patient was kept in the radiology department for short stay after the procedure and then taken to surgery for surgical excision. One surgical specimen is obtained. It contains 2 wires, the microclip at the site of biopsy-proven DCIS, and a large group of microcalcifications that was targeted in the posterior upper inner quadrant. The patient was kept in hospital for short stay after the procedure and then discharged home in stable condition. IMPRESSION: Successful, uncomplicated needle localization with wire placement and surgical excision of one large surgical specimen that includes both wires, the anterior microclip corresponding to the site of biopsy-proven DCIS, and the posterior wire targeting the suspicious group of microcalcifications that was not amenable to stereotactic biopsy. Full pathology results to follow. Pathology Results: High Risk A. LEFT SENTINEL NODE, BIOPSY: Lymph node negative for metastasis. CK7 and HUSSAIN immunoperoxidase stains are confirmatory (controls appropriate). B. 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 Lobular neoplasia (ALH/LCIS) and background proliferative fibrocystic changes. See Surgical Pathology Cancer Case Summary. Recommendation Surgical consult of the left breast. STACIED
[2020-02-13 16:54] VITALS: BP 120/71; PULSE 87
== END | disposition home or self-care (01) ==
LOC: OR 09:02
PROVIDERS: ATTEND Surgery
DX: D05.12 Intraductal carcinoma in situ of left breast (principal); E11.9 Type 2 diabetes mellitus without complications; E78.5 Hyperlipidemia, unspecified; I10 Essential (primary) hypertension; Z98.890 Other specified postprocedural states; Z87.891 Personal history of nicotine dependence; F41.9 Anxiety disorder, unspecified; Z79.4 Long term (current) use of insulin; Z79.899 Other long term (current) drug therapy
CPT/HCPCS: 19301; 38525; 88342; 88307; 88341; 76098; 38792; A9520; J1644; J1100; J2405; J2001; J3010; J0330; J2704; 19282

== ENCOUNTER → 2020-02-23 | Outpatient (CLI) | payer BC ==
[2020-02-23 15:02] VITALS: BP 133/72; PULSE 90; RESP 16; TEMP 98.1
--- NOTE | 2020-02-23 15:19 | P.PN ---
Subjective Progress Note Date: 02/23/20 Principal diagnosis: DCIS left breast DCIS/ close posterior and inferior margins after lumpectomy Tylor is a 60 year old white female seen in consultation for DR. Gonzalez with a complaint of bilateral breast microcalcifications. She underwent a routine screening mammogram on 10-27-19, she was recommended to undergo a bilateral diagnostic mammogram. This was performed on 83. In the right breast she had some grouped calcifications which were felt to be coursing repeat right breast mammogram in 6 months was recommended. In the left breast she was noted to have persistent new heterogeneous calcifications in the lower inner quadrant for which stereotactic core biopsy was recommended. 1-2 sites to be sampled. The patient herself does not report any lumps masses or nodules in either breast. She is not complaining of any nipple discharge or skin changes. She is not reporting any recent trauma or infection in the breast. She had a prior core biopsy of the left breast which was benign many years ago. She underwent a left breast needle core biopsy on , this revealed ductal carcinoma in situ, grade 3 with focal comedo form necrosis. Upon review of the radiographs a second area of concern was noted in the left breast as well as a area of concern in the right breast. She underwent a stereo biopsy of the area of concern in the right breast on which revealed fibroadenomatoid hyperplasia with calcifications in a background of fibrocystic changes. Attempt to do a stereo biopsy of the additional area in the left breast was unsuccessful secondary to the location of the lesion. She then underwent a bilateral breast MRI on . This revealed benign findings in the right breast, biopsy- proven cancer left breast with a second area which left breast ultrasound was recommended with attention to the seasonal just above the nipple in 9 to 10 o'clock position central aspect. This upon review with radiology corresponded to the second area of calcifications. Additionally an ultrasound was performed and the area was not seen on ultrasound. After review with radiology Dr. sousa she believes that he can do needle localization of the calcifications in the left breast which were previously biopsied and known to be DCIS as well as the second area of calcifications near the chest wall. The second areas also corresponds to the MRI findings. No other lesions of concern were noted on the MRI. Tylor underwent a left breast lumpectomy and sentinel node biopsy on . Postoperatively she is doing well. She did have grade 2/3 DCIS less than 1 mm from the purple posterior margin and inferior margin which is multifocal. The posterior margin is on the pectoralis major muscle and dissection was carried down to the muscle therefore no further resection will be performed posteriorly. However after presentation at tumor Board it was recommended that additional inferior margin be obtained. The patient is here today and we have discussed this and she understands and has been scheduled for this. Family History: none Hormonal History: menarche: 10 , 1 Ab, first born at 30, breast fed: no menopause: ablation 48 BCP: 14 years hormones: none Surgical history: Cervical spine no restrictions Medical history: HTN DM Social history: Smoke: Stopped 13 years ago Alcohol: Occasional Drugs: Marijuana several times a month - Constitutional Constitutional: Denies chills, Denies fever - EENT Eyes: denies blurred vision, denies pain Ears: deny: decreased hearing, tinnitus Ears, nose, mouth and throat: Denies headache, Denies sore throat - Breasts Breasts: bilateral: as per HPI - Cardiovascular Cardiovascular: Reports high blood pressure, Denies chest pain, Denies shortness of breath - Respiratory Respiratory: Denies cough, - Gastrointestinal Gastrointestinal: Denies abdominal pain, Denies diarrhea, Denies nausea, Denies vomiting - Menstruation Menstruation: Reports postmenopausal - Musculoskeletal Comment: Cervical spine surgery Musculoskeletal: Reports myalgias - Integumentary Integumentary: Denies pruritus, Denies rash - Neurological Neurological: Reports numbness, Reports weakness - Psychiatric Psychiatric: Reports anxiety - Endocrine Endocrine: Denies fatigue, Denies weight change - Hematologic/Lymphatic Hematologic/Lymphatic: Reports as per HPI - Allergic/Immunologic Allergic/Immunologic: Reports as per HPI Objective - Vital Signs Vital signs: Vital Signs Temp 98.1 F 02/23/20 14:59 Pulse 90 02/23/20 14:59 Resp 16 02/23/20 14:59 BP 133/72 02/23/20 14:59 Pulse Ox 98 02/23/20 14:59 Intake & Output 02/22/20 02/23/20 02/23/20 18:59 06:59 18:59 Weight 81.193 kg - Exam BMI 30.7 - Constitutional General appearance: Present: average body habitus - EENT Eyes: Present: EOMI ENT: Present: hearing grossly normal - Neck Neck: Present: normal ROM - Respiratory Respiratory: bilateral: CTA - Cardiovascular Rhythm: regular Heart sounds: normal: S1, S2 - Integumentary Integumentary Comment(s): incision left axilla and breast clean and dry Integumentary: Present: normal turgor - Musculoskeletal Musculoskeletal: Present: gait normal - Psychiatric Psychiatric: Present: A&O x's 3, appropriate affect Assessment and Plan Assessment: Impression: 1. left bresat DCIS close inferior margin Plan: 1. re-excision of inferior margin left breast lumpectomy site 2. possible onco-plastic tissue transfer CC: Dr. Rausch encounter 15 minutes, > 50% of time in planning and counselling
== END | disposition home or self-care (01) ==
LOC: WWCWWP 14:52
PROVIDERS: ATTEND Surgery
DX: Z53.9 Procedure and treatment not carried out, unspecified reason (principal)

== ENCOUNTER 2020-02-27 07:23 | Day surgery (SDC) | payer BC ==
[~2020-02-27 07:23] MED LIST changes: -DEXAMETHASONE SOD PHOSPHATE 4 MG/ML 1 ML VIAL IV ONE; -LACTATED RINGERS 1,000 ML IV ONE; -LIDOCAINE 1% (10MG/ML) FOR IV START SQ ONE; -LIDOCAINE 1% INJ 10MG/ML (20 ML MDV) ONE; -LIDOCAINE 1% INJ 10MG/ML (20 ML MDV) SQ ONE; -LIDOCAINE 1%-EPI 1:100,000 20 ML VIAL SQ ONE; -MIDAZOLAM 2 MG/2 ML VIAL IV PRN; -PROPOFOL 10 MG/ML 20 ML VIAL IV ONE; -SCOPOLAMINE 1.5MG/72HR PATCH TRANSDERM ONE; -SUCCINYLCHOLINE CHLORIDE 100 MG/5 ML SYR IV ONE; -ePHEDrine SULFATE/0.9% NACL/PF 50 MG/5 ML SYRINGE IV ONE; +fentaNYL (PF) 50 MCG/ML 2 ML AMP IV PRN; -fentaNYL (PF) 50 MCG/ML 2 ML AMP ONE
[2020-02-27] MEDS ORDERED: LIDOCAINE 1% (10MG/ML) FOR IV START INTRADERMA ONE (08:00)
[2020-02-27 08:06] LABS: Glucose,Whole Blood 189 mg/dL (75-99)
[2020-02-27] MEDS ORDERED: ONDANSETRON 4 MG/2 ML VIAL ONE (08:06)
[2020-02-27] MEDS ORDERED: DEXAMETHASONE SOD PHOSPHATE 4 MG/ML 1 ML VIAL IV ONE (08:07)
[2020-02-27] MEDS ORDERED: HEPARIN SODIUM,PORCINE 5,000 UNIT/ML 1 ML VIAL SQ ONE (08:07)
[2020-02-27] MEDS ORDERED: ePHEDrine SULFATE/0.9% NACL/PF 50 MG/5 ML SYRINGE IV ONE (08:31)
[2020-02-27] MEDS ORDERED: fentaNYL (PF) 50 MCG/ML 2 ML AMP ONE (08:31)
[2020-02-27] MEDS ORDERED: PROPOFOL 10 MG/ML 20 ML VIAL IV ONE (08:31)
[2020-02-27] MEDS ORDERED: SUCCINYLCHOLINE CHLORIDE 100 MG/5 ML SYR IV ONE (08:31)
[2020-02-27] MEDS ORDERED: LIDOCAINE 1% INJ 10MG/ML (20 ML MDV) ONE (08:31)
[2020-02-27] MEDS ORDERED: MIDAZOLAM 2 MG/2 ML VIAL ONE (08:31)
[2020-02-27] MEDS ORDERED: LIDOCAINE 1% INJ 10MG/ML (20 ML MDV) SQ ONE ×2 (08:34)
--- NOTE | 2020-02-27 08:46 | P.NAPBC ---
NAPBC Queries - NAPBC Queries Was patient's case review presented at [facility] tumor board? If no, comment.: Yes Was patient's pathology reviewed at [facility]? If no, comment.: Yes Was breast conservation surgery offered? If no, comment.: Yes Was sentinel node biopsy offered? If no, comment.: Yes Was diagnosis confirmed by percutaneous core biopsy? If no, comment.: Yes Is patient mastectomy patient?: No Was a preop referral to reconstructive surgeon offered?: Yes Clinical Stage: Stage 0 (close inferior and posterior margins, recommended for re-excision of inferior margin, as posterior margin on rectus muscle)
--- NOTE | 2020-02-27 09:38 | P.OP ---
Date of Procedure: 02/27/20 Preoperative Diagnosis: close inferior margin status post resection DCIS Postoperative Diagnosis: same Procedure(s) Performed: re-excision of inferior margin Anesthesia: LINDSEY Surgeon: Nika Harman Estimated Blood Loss (ml): 5 IV fluids (ml): 200 Pathology: other (breat tissue) Condition: stable Disposition: same day Indications for Procedure: prior excision of DCIS with close inferior margin at multiple sites Operative Findings: fibrofatty breast tissue Description of Procedure: Tylor is a 60 year old white female status post partial mastectomy for DCIS in the left breast. The inferior and posterior margins were close. The posterior margin was on the pectoralis muscle, and further resection was not felt possible. The inferior margin was close at multiple sites and after prese ntation at tumor Board it was recommended that re-excision of the inferior margin be performed. The patient was taken to the operating room and following induction of anesthesia the left breast was prepped and draped in a sterile fashion. The prior incision was reopened. Dissection was carried down to the cavity of the prior resection. The inferior margin of this was resected for approximately 5 cm in length. This was approximately 2 cm from anterior to posterior. The new margin was marked with a long stitch being the lateral area of the resection a short stitch being the medial aspect of the resection. The external surface of the inferior margin was painted green. Specimen was sent to pathology. A titanium clip was placed inferiorly and 2 additional clips were placed medially. The wound was well irrigated. After we were assured that hemostasis was attained Surgicel in powder form was placed. The tissues were reapproximated using 3-0 Vicryl suture. The subcutaneous tissues were closed using 3-0 Vicryl suture. The skin was reapproximated using a 4-0 Monocryl. [place] were applied. The patient tolerated the procedure in stable condition. All instrument and sponge counts were correct at the end of the case.
--- NOTE | 2020-02-27 09:41 | P.DS ---
Providers Attending physician: Nika Harman Primary care physician: Carlos Rausch Plan - Discharge Summary Discharge Rx Participant: Yes New Discharge Prescriptions: No Action Rosuvastatin Calcium [Crestor] 5 mg PO QAM Insulin Glargine,Hum.rec.anlog [Toujeo Solostar] 28 units SQ HS metFORMIN HCL 1,000 mg PO BID FLUoxetine HCL [PROzac] 80 mg PO QAM Insulin Regular, Human [NovoLIN R] 6 unit SQ AC-TID Losartan [Cozaar] 25 mg PO QAM Ascorbic Acid [Vitamin C] 500 mg PO DAILY Multivitamins, Thera [Multivitamin (formulary)] 1 tab PO DAILY L.acidoph,Paracasei, B.lactis [Probiotic] 1 each PO DAILY Discharge Medication List FLUoxetine HCL [PROzac] 80 mg PO QAM 10/16/16 [History] Insulin Glargine,Hum.rec.anlog [Toujeo Solostar] 28 units SQ HS 10/16/16 [History] Rosuvastatin Calcium [Crestor] 5 mg PO QAM 10/16/16 [History] metFORMIN HCL 1,000 mg PO BID 10/16/16 [History] Insulin Regular, Human [NovoLIN R] 6 unit SQ AC-TID 12/12/19 [History] Losartan [Cozaar] 25 mg PO QAM 12/22/19 [History] Ascorbic Acid [Vitamin C] 500 mg PO DAILY 02/05/20 [History] L.acidoph,Paracasei, B.lactis [Probiotic] 1 each PO DAILY 02/05/20 [History] Multivitamins, Thera [Multivitamin (formulary)] 1 tab PO DAILY 02/05/20 [History] Follow up Appointment(s)/Referral(s): Nika Harman MD [STAFF PHYSICIAN] - 1 Week Activity/Diet/Wound Care/Special Instructions: may shower after [address] for 24 hours or if taking narcotic pain medication Discharge Disposition: HOME SELF-CARE
[2020-02-27 09:58] VITALS: TEMP 97.2
[2020-02-27 10:21] LABS: Glucose,Whole Blood 217 mg/dL (75-99)
[2020-02-27 10:34] VITALS: RESP 16
[2020-02-27 11:05] VITALS: BP 129/85; PULSE 92
== END 2020-02-27 11:23 | disposition home or self-care (01) ==
LOC: OR 07:23
PROVIDERS: ATTEND Surgery
DX: D05.12 Intraductal carcinoma in situ of left breast (principal); I10 Essential (primary) hypertension; E78.5 Hyperlipidemia, unspecified; E11.9 Type 2 diabetes mellitus without complications; F32.9 Major depressive disorder, single episode, unspecified; Z79.4 Long term (current) use of insulin; Z79.899 Other long term (current) drug therapy; Z98.890 Other specified postprocedural states; Z87.891 Personal history of nicotine dependence
CPT/HCPCS: 88307; 19301; J2250; J1644; J1100; J2405; J2001; J3010; J0330; J2704

== ENCOUNTER → 2020-03-01 | Outpatient (CLI) | payer BC ==
[2020-03-01 09:34] VITALS: BP 124/79; PULSE 95; RESP 18; TEMP 98.5
--- NOTE | 2020-03-01 09:54 | P.PN ---
Progress Note - Text Progress Note Date: 03/01/20 Tylor is postoperative reexcision of inferior margin left lumpectomy site on 02-27-20. Pathology revealed 1 minute focus of residual DCIS with the new inferior margin being negative at 5.5 mm from this site. Tylor is doing well without complaints. Lungs: clear heart: S1S2 incision: Clean and dry, seroma at lumpectomy site Impression/Plan: 1. No residual tumor at the resection margins/close posterior margin on pectoralis major muscle 2. Have discussed case with radiation oncology patient has cerebral metastases this time and will follow with radiation oncology in 2 weeks rather than next week 3. Follow-up here in a week and a half 4. Half of bobby removed CC: Dr. Rausch
== END | disposition home or self-care (01) ==
LOC: WWCWWP 09:21
PROVIDERS: ATTEND Surgery
DX: Z53.9 Procedure and treatment not carried out, unspecified reason (principal)

== ENCOUNTER → 2020-03-14 | Outpatient (CLI) | payer BC ==
--- NOTE | 2020-03-14 14:07 | P.PN ---
Progress Note - Text Progress Note Date: 03/14/20 Tylor is postoperative reexcision of inferior margin left lumpectomy site on 02-27-20. Pathology revealed 1 minute focus of residual DCIS with the new inferior margin being negative at 5.5 mm from this site. Tylor is doing well without complaints. Lungs: clear heart: S1S2 incision: Clean and dry, seroma at lumpectomy site Impression/Plan: 1. No residual tumor at the resection margins/close posterior margin on pectoralis major muscle 2. Have discussed case with radiation oncology, she will follow with radiation oncology next week 3. Follow-up here in two weeks 4. bobby removed 5. aspiration of seroma aspiration of seroma: The area of fluctuance in the left breast was prepped using alcohol. 1% lidocaine was used to anesthetize the area of concern. Approximately 215 mL of straw-colored fluid was removed. There appeared to be complete resolution of the seroma. The patient will follow up here in 2 weeks CC: Dr. Rausch
[2020-03-14 14:56] VITALS: BP 137/74; PULSE 97; RESP 16; TEMP 98.2
== END | disposition home or self-care (01) ==
LOC: WWCWWP 13:34
PROVIDERS: ATTEND Surgery
DX: Z53.9 Procedure and treatment not carried out, unspecified reason (principal)

== ENCOUNTER → 2020-03-28 | Outpatient (CLI) | payer BC ==
[2020-03-28 16:19] VITALS: BP 120/81; PULSE 89; RESP 18; TEMP 98
--- NOTE | 2020-03-28 16:40 | P.PN ---
Progress Note - Text Progress Note Date: 03/28/20 Tylor is postoperative re-excision of inferior margin left lumpectomy site on 02-27-20. Pathology revealed 1 minute focus of residual DCIS with the new inferior margin being negative at 5.5 mm from this site. Tylor is doing well without complaints. She was seen on 03-14-20 and 215 cc of fluid was drained. Since that time she has seen radiation oncology and is having 5 days of twice a day treatment. Her last day for radiation is tomorrow. She has no complaints at this time. If there is a seromatous small at this time and does not appear to have returned as it was before. Lungs: clear heart: S1S2 incision: Clean and dry, seroma at lumpectomy site mostly resloved, slight skin changes related to radiation Impression/Plan: 1. No residual tumor at the resection margins/close posterior margin on pectoralis major muscle 2. Have discussed case with radiation oncology, she will follow with radiation oncology 3. Follow-up here after returns from [place] 4. Follow-up with medical oncology to determine need for antihormone therapy
== END | disposition home or self-care (01) ==
LOC: WWCWWP 15:52
PROVIDERS: ATTEND Surgery
DX: Z53.9 Procedure and treatment not carried out, unspecified reason (principal)

== ENCOUNTER → 2020-10-17 | Outpatient (CLI) | payer BC ==
[2020-10-17 15:10] VITALS: BP 132/84; PULSE 88; RESP 18; TEMP 98.3
--- NOTE | 2020-10-17 15:31 | P.PN ---
Subjective Progress Note Date: 10/17/20 Principal diagnosis: left breast DCIS left breast DCIS Tylor is a 60-year-old white female status post left breast lumpectomy, [place] [address] ductal carcinoma in situ. The tumor was ER/DE positive. Margins revealed DCIS less than 1 millimeter from the propofol posterior margin and inferior margins multifocally. She therefore underwent a reexcision of the inferior margin for stated revealed focal grade 2 DCIS adjacent to the previous site, new inferior margin was negative. This was on . She subsequently underwent radiation therapy. [place] [address], with a bilateral workup on 83. Patient developed a seroma after the lumpectomy. This drained for several months and has recently stopped draining. She does have some postop changes with scarring and radiation changes at the site of the lumpectomy. She saw a medical oncologist in [place] and is presently on Anestrazole. She is tolerating this without difficulty. Dr. Reba Mcgowan from [place] with [facility]. Family History: none Hormonal History: menarche: 10 , 1 Ab, first born at 30, breast fed: no menopause: ablation 48 BCP: 14 years hormones: none Surgical history: Cervical spine no restrictions Medical history: HTN DM panic attacks Social history: Smoke: Stopped 13 years ago Alcohol: Occasional Drugs: Marijuana several times a month - Constitutional Constitutional: Denies chills, Denies fever - EENT Eyes: denies blurred vision, denies pain Ears: deny: decreased hearing, tinnitus Ears, nose, mouth and throat: Denies headache, Denies sore throat - Breasts Breasts: bilateral: as per HPI - Cardiovascular Cardiovascular: Reports high blood pressure, Denies chest pain, Denies shortness of breath - Respiratory Respiratory: Denies cough - Gastrointestinal Gastrointestinal: Denies abdominal pain, Denies diarrhea, Denies nausea, Denies vomiting - Menstruation Menstruation: Reports postmenopausal - Musculoskeletal Comment: Cervical spine surgery Musculoskeletal: Reports myalgias - Integumentary Integumentary: Denies pruritus, Denies rash - Neurological Neurological: Reports numbness, Reports weakness - Psychiatric Psychiatric: Reports anxiety - Endocrine Endocrine: Denies fatigue, Denies weight change - Hematologic/Lymphatic Hematologic/Lymphatic: Reports as per HPI - Allergic/Immunologic Allergic/Immunologic: Reports as per HPI Objective - Vital Signs Vital signs: Vital Signs Temp 98.3 F 10/17/20 15:06 Pulse 88 10/17/20 15:06 Resp 18 10/17/20 15:06 BP 132/84 10/17/20 15:06 Pulse Ox 96 10/17/20 15:06 Intake & Output 10/16/20 10/17/20 10/17/20 18:59 06:59 18:59 Weight 80.739 kg - Exam BMI 30.6 - Constitutional General appearance: Present: average body habitus - EENT Eyes: Present: EOMI ENT: Present: hearing grossly normal - Neck Neck: Present: normal ROM - Respiratory Respiratory: bilateral: CTA - Cardiovascular Rhythm: regular Heart sounds: normal: S1, S2 - Integumentary Integumentary: Present: normal turgor - Musculoskeletal Musculoskeletal: Present: gait normal - Psychiatric Psychiatric: Present: A&O x's 3 - Additional findings Additional findings: Breast exam: BRA: 38C inspection: Postop radiation and surgical changes in the left breast Palpation: Right breast: Multi-positional exam fibrocystic changes, no dominant masses or nodules of concern Right axilla: No adenopathy of concern Left breast: Postop and radiation changes probable fat necrosis in the upper inner quadrant area of the breast no evidence of seroma on today's examination Left axilla: No adenopathy of concern Assessment and Plan Assessment: Impression: Left breast DCIS, postop and post radiation changes no evidence of any recurrent disease at this time Patient presently on anastrozole Plan: Continue anastrozole Bilateral mammogram Follow up after bilateral mammogram CC: DR. Rausch
== END ==
LOC: WWCWWP 15:00
PROVIDERS: ATTEND Surgery
DX: D05.12 Intraductal carcinoma in situ of left breast (principal); I10 Essential (primary) hypertension; E11.9 Type 2 diabetes mellitus without complications; F41.0 Panic disorder [episodic paroxysmal anxiety]; Z87.891 Personal history of nicotine dependence; Z79.811 Long term (current) use of aromatase inhibitors; Z92.3 Personal history of irradiation; Z79.4 Long term (current) use of insulin; Z79.899 Other long term (current) drug therapy

== ENCOUNTER → 2020-11-13 | Outpatient (CLI) | payer BC ==
--- NOTE | 2020-11-19 11:06 | MM ---
Reason for exam: follow-up at short interval from prior study. Last mammogram was performed 1 year ago. History: Patient is postmenopausal, has history of high-risk lesion on a previous biopsy at age 60, has history of breast cancer at age 59, and had first child at age 31. High risk MG pre op loc each addl LT of the left breast, February 13, 2020. High risk MG pre op needle loc LT of the left breast, February 13, 2020. Lumpectomy of the left breast, February 13, 2020. Benign MG stereo VAD BX RT of the right breast, January 12, 2020. MG discontinued stereo core LT of the left breast, January 12, 2020. Malignant MG stereo VAD BX LT of the left breast, December 28, 2019. Benign stereotactic core biopsy of the right breast, May 18, 2003. Core biopsy of the right breast. Took hormonal contraceptives for 17 years. Taking other hormone for 4 months. Physical Findings: Nurse Summary: 3cm nodule in the left breasst at 10-11 o'clock (nurse TM). MG Diagnostic Mammo w CAD LEROY Bilateral CC and MLO view(s) were taken. Prior study comparison: February 01, 2020, left breast US breast limited LT. January 26, 2020, bilateral MR breast bilat wo/w con. November 13, 2019, bilateral MG work up mamm w CAD BILAT. October 27, 2019, bilateral MG screening mammo w CAD. The breast tissue is heterogeneously dense. This may lower the sensitivity of mammography. Previous mammotome biopsy in the right breast x 2. Post surgical and post therapy changes left breast. Calcifications at the lumpectomy site appears course on magnification views possible early fat necrosis, 6 month follow up. Overlying palpable marker. These results were verbally communicated with the patient and result sheet given to the patient on 11/13/20. ASSESSMENT: Incomplete: need additional imaging evaluation, BI-RAD 0 RECOMMENDATION: Ultrasound of the left breast.
--- NOTE | 2020-11-19 11:08 | USB ---
Reason for exam: additional evaluation requested from abnormal screening. History: Patient is postmenopausal, has history of high-risk lesion on a previous biopsy at age 60, has history of breast cancer at age 59, and had first child at age 31. High risk MG pre op loc each addl LT of the left breast, February 13, 2020. High risk MG pre op needle loc LT of the left breast, February 13, 2020. Lumpectomy of the left breast, February 13, 2020. Benign MG stereo VAD BX RT of the right breast, January 12, 2020. MG discontinued stereo core LT of the left breast, January 12, 2020. Malignant MG stereo VAD BX LT of the left breast, December 28, 2019. Benign stereotactic core biopsy of the right breast, May 18, 2003. Core biopsy of the right breast. Took hormonal contraceptives for 17 years. Taking other hormone for 4 months. US Breast Limited LT Left limited breast ultrasound including focal area of concern, retroareolar and axilla demonstrates irregular shadowing hypoechoic area at the scar site. This is compatible with scar and extends to the skin. 6 month follow up mammogram to confirm early fat necrosis calcifications. Scanned 9-12 o'clock. These results were verbally communicated with the patient and result sheet given to the patient on 11/13/20. ASSESSMENT: Probably benign, BI-RAD 3 RECOMMENDATION: Follow-up diagnostic mammogram of the left breast in 6 months.
== END | disposition home or self-care (01) ==
LOC: RADMAMWWP 09:39
PROVIDERS: ATTEND Surgery
DX: N63.22 Unspecified lump in the left breast, upper inner quadrant (principal); Z78.0 Asymptomatic menopausal state; Z85.3 Personal history of malignant neoplasm of breast; Z79.3 Long term (current) use of hormonal contraceptives
CPT/HCPCS: 77066

== ENCOUNTER → 2020-11-22 | Outpatient (CLI) | payer BC ==
[2020-11-22 16:24] VITALS: BP 139/80; PULSE 83; RESP 16; TEMP 98.1
--- NOTE | 2020-11-22 16:33 | P.PN ---
Subjective Progress Note Date: 11/22/20 Principal diagnosis: left breast DCIS Tylor is a 60-year-old white female status post left breast [place], [place] [id number] for ductal carcinoma in situ. The tumor was ER/GA positive. Margins revealed DCIS less than 1 millimeter from the posterior margin and inferior margins multifocally. She therefore underwent a reexcision inferior margin. This revealed focal grade 2 ductal carcinoma in situ adjacent to previous biopsy site, Margin negative for DCIS. This was on [id number]. She subsequently underwent radiation therapy. Patient developed a seroma after the lumpectomy. This drained for several months and has recently stopped draining. She does have some postop changes with scarring and radiation changes at the site of the lumpectomy. She saw a medical oncologist in [place] and is presently on Anestrazole. She is tolerating this without difficulty. Dr. Reba Mcgowan from [place] with [facility]. Underwent bilateral mammogram and [id number]. This is felt to be incomplete left breast by ultrasound was recommended. No lesions of concern were noted in the right breast. This was performed on the same day. The findings were felt to be consistent with postoperative changes and repeat 6 month follow-up left breast mammogram. The patient has no masses nodules of concern in either breast. She is not complaining of any nipple discharge or skin changes. Family History: none Hormonal History: menarche: 10 , 1 Ab, first born at 30, breast fed: no menopause: ablation 48 BCP: 14 years hormones: none Surgical history: Cervical spine no restrictions Medical history: HTN DM panic attacks Social history: Smoke: Stopped 13 years ago Alcohol: Occasional Drugs: Marijuana several times a month - Constitutional Constitutional: Denies chills, Denies fever - EENT Eyes: denies blurred vision, denies pain Ears: deny: decreased hearing, tinnitus Ears, nose, mouth and throat: Denies headache, Denies sore throat - Breasts Breasts: bilateral: as per HPI - Cardiovascular Cardiovascular: Reports high blood pressure, Denies chest pain, Denies shortness of breath - Respiratory Respiratory: Denies cough - Gastrointestinal Gastrointestinal: Denies abdominal pain, Denies diarrhea, Denies nausea, Denies vomiting - Menstruation Menstruation: Reports postmenopausal - Musculoskeletal Comment: Cervical spine surgery Musculoskeletal: Reports myalgias - Integumentary Integumentary: Denies pruritus, Denies rash - Neurological Neurological: Reports numbness, Reports weakness - Psychiatric Psychiatric: Reports anxiety - Endocrine Endocrine: Denies fatigue, Denies weight change - Hematologic/Lymphatic Hematologic/Lymphatic: Reports as per HPI - Allergic/Immunologic Allergic/Immunologic: Reports as per HPI Objective - Constitutional General appearance: Present: cooperative - EENT Eyes: Present: EOMI ENT: Present: hearing grossly normal - Neck Neck: Present: normal ROM - Respiratory Respiratory: bilateral: CTA - Cardiovascular Rhythm: regular Heart sounds: normal: S1, S2 - Integumentary Integumentary: Present: normal turgor - Musculoskeletal Musculoskeletal: Present: gait normal - Psychiatric Psychiatric: Present: A&O x's 3, appropriate affect, intact judgment & insight - Additional findings Additional findings: Breast Exam: BRA: 38C inspection: post op changes left breast Palpation: Right breast: Multi-positional exam fibrocystic changes no dominant masses or nodules of concern Right axilla: No adenopathy of concern Left breast: Postop changes no dominant masses or nodules of concern otherwise Left axilla: No adenopathy of concern Assessment and Plan Assessment: Impression: HTN DM panic attack DCIS left breast no evidence of recurrent disease Plan: 1. Repeat left breast mammogram in 6 months 2. Follow-up examination 4 months/patient will be in [place] and is following with medical oncology 3. follow up when returns from [place] CC: [facility]
== END ==
LOC: WWCWWP 16:12
PROVIDERS: ATTEND Surgery
DX: F41.0 Panic disorder [episodic paroxysmal anxiety] (principal); E11.9 Type 2 diabetes mellitus without complications; I10 Essential (primary) hypertension; Z85.3 Personal history of malignant neoplasm of breast; Z87.891 Personal history of nicotine dependence

== ENCOUNTER → 2021-09-18 | Outpatient (CLI) | payer BC ==
--- NOTE | 2021-09-18 12:07 | MM ---
Reason for Exam: Follow-up at short interval from prior study. Last screening mammogram was performed 10 month(s) ago. Patient History: Menarche at age 10. First Full-Term at age 31. Late child-bearing (after 30). Postmenopausal. Breast cancer, left, age 59. Patient used Hormonal Contraceptives for 17 years. Core Biopsy on the Right side. 02/13/2020, Lumpectomy on the Left side. 02/13/2020, High risk Core Biopsy on the left side. 02/13/2020, High risk Core Biopsy on the left side. 01/12/2020, Benign Core Biopsy on the right side. 12/28/2019, Malignant Core Biopsy on the left side. 05/18/2003, Benign Stereotactic Core Biopsy on the right side. 01/12/2020, MG discontinued stereo core LT on the left side. Tissue Density: The breast tissue is heterogeneously dense. This may lower the sensitivity of mammography. Findings: Analyzed By CAD. Postsurgical changes are within the left breast. 2 prior biopsy clips are within the right breast. Parenchymal pattern appears stable. Left breast is somewhat smaller than the right. No significant interval changes are evident. Overall Assessment: Benign, BI-RAD 2 Management: Diagnostic Mammogram of both breasts in 1 year. A clinical breast exam by your physician is recommended on an annual basis and results should be correlated with mammographic findings. This exam should not preclude additional follow-up of suspicious palpable abnormalities. Results were given to the patient verbally at the time of exam. Electronically signed and approved by: Daniel Weiss D.O. Radiologis
== END | disposition home or self-care (01) ==
LOC: RADMAMWWP 10:51
PROVIDERS: ATTEND Surgery
DX: R92.8 Other abnormal and inconclusive findings on diagnostic imaging of breast (principal); Z78.0 Asymptomatic menopausal state; Z85.3 Personal history of malignant neoplasm of breast
CPT/HCPCS: 77062; 77066

== ENCOUNTER → 2021-09-25 | Outpatient (CLI) | payer BC ==
[2021-09-25 09:27] VITALS: BP 147/85; PULSE 91; RESP 16; TEMP 98.7
--- NOTE | 2021-09-25 09:50 | P.PN ---
Subjective Progress Note Date: 09/25/21 Principal diagnosis: Left breast DCIS left breast DCIS Tylor is a 61-year-old white female status post left breast [place]pect[place], [place] [id number] ductal carcinoma in situ. The tumor was ER/[place] positive. Margins revealed DCIS less than 1 millimeter from the posterior margin and inferior margins multifocally. She therefore underwent a reexcision of the inferior margin for stated revealed focal grade 2 DCIS adjacent to the previous site, new inferior margin was negative. This was on [id number]. She subsequently underwent radiation therapy. Her last bilateral mammogram was on 09-18-21. This was benign BIRADS 2. Patient developed a seroma after the lumpectomy. This drained for several months and has recently stopped draining. She does have some postop changes with scarring and radiation changes at the site of the lumpectomy. She saw a medical oncologist in [place] and is presently on Anestrazole. She is tolerating this without difficulty. Dr. Reba Mcgowan from [place] with [facility]. She is not complaining of anything lumps masses or nodules in either breast. She is tolerating the anastrozole with no difficulty. Family History: none Hormonal History: menarche: 10 , 1 Ab, first born at 30, breast fed: no menopause: ablation 48 BCP: 14 years hormones: none Surgical history: Cervical spine no restrictions Medical history: HTN DM panic attacks Social history: Smoke: Stopped 13 years ago Alcohol: Occasional Drugs: Marijuana several times a month - Constitutional Constitutional: Denies chills, Denies fever - EENT Eyes: denies blurred vision, denies pain Ears: deny: decreased hearing, tinnitus Ears, nose, mouth and throat: Denies headache, Denies sore throat - Breasts Breasts: bilateral: as per HPI - Cardiovascular Cardiovascular: Reports high blood pressure, Denies chest pain, Denies shortness of breath - Respiratory Respiratory: Denies cough - Gastrointestinal Gastrointestinal: Denies abdominal pain, Denies diarrhea, Denies nausea, Denies vomiting - Menstruation Menstruation: Reports postmenopausal - Musculoskeletal Comment: Cervical spine surgery Musculoskeletal: Reports myalgias - Integumentary Integumentary: Denies pruritus, Denies rash - Neurological Neurological: Reports numbness, Reports weakness - Psychiatric Psychiatric: Reports anxiety - Endocrine Endocrine: Denies fatigue, Denies weight change - Hematologic/Lymphatic Hematologic/Lymphatic: Reports as per HPI - Allergic/Immunologic Allergic/Immunologic: Reports as per HPI Objective - Vital Signs Vital signs: Vital Signs Temp 98.7 F 09/25/21 09:24 Pulse 91 09/25/21 09:24 Resp 16 09/25/21 09:24 BP 147/85 09/25/21 09:24 Pulse Ox 95 09/25/21 09:24 FiO2 Intake & Output 09/24/21 09/25/21 09/25/21 18:59 06:59 18:59 Weight 80.739 kg - Exam BMI: 32.6 - Constitutional General appearance: Present: cooperative - EENT Eyes: Present: EOMI ENT: Present: hearing grossly normal - Neck Neck: Present: normal ROM - Respiratory Respiratory: bilateral: CTA - Cardiovascular Rhythm: regular Heart sounds: normal: S1, S2 - Gastrointestinal General gastrointestinal: Present: soft - Integumentary Integumentary: Present: normal turgor - Musculoskeletal Musculoskeletal: Present: gait normal - Psychiatric Psychiatric: Present: A&O x's 3, appropriate affect, intact judgment & insight - Additional findings Additional findings: Breast Exam; BRA: 38C inspection: Left breast postop and radiation changes otherwise no lesions of concern Palpation: Right breast: Positional exam fibrocystic changes no dominant masses or nodules of concern Right axilla: No adenopathy of concern Left breast: Postop postradiation changes in the medial upper quadrant otherwise no dominant masses or nodules of concern Left axilla: No adenopathy of concern Assessment and Plan Assessment: Impression: Patient status post left breast lumpectomy radiation therapy for DCIS she is presently on anastrozole no evidence of recurrent disease Recent bilateral mammogram [id number] benign BIRADS 2 Plan: Continue anastrozole Bilateral mammogram in 1 year Follow-up for surveillance in 6 months CC: Dr. Rausch
== END ==
LOC: WWCWWP 09:12
PROVIDERS: ATTEND Surgery
DX: Z08 Encounter for follow-up examination after completed treatment for malignant neoplasm (principal); I10 Essential (primary) hypertension; E11.9 Type 2 diabetes mellitus without complications; Z85.3 Personal history of malignant neoplasm of breast; Z92.3 Personal history of irradiation; Z79.811 Long term (current) use of aromatase inhibitors; Z87.891 Personal history of nicotine dependence

== ENCOUNTER → 2022-10-08 | Outpatient (CLI) | payer BC ==
--- NOTE | 2022-10-08 13:24 | MM ---
Reason for Exam: Additional evaluation requested from prior study. Last screening mammogram was performed 12 month(s) ago. Patient History: Menarche at age 10. First Full-Term at age 31. Late child-bearing (after 30). Postmenopausal. Breast cancer, left, age 59. Patient used Hormonal Contraceptives for 17 years. Core Biopsy on the Right side. 02/13/2020, Lumpectomy on the Left side. 02/13/2020, High risk Core Biopsy on the left side. 02/13/2020, High risk Core Biopsy on the left side. 01/12/2020, Benign Core Biopsy on the right side. 12/28/2019, Malignant Core Biopsy on the left side. 05/18/2003, Benign Stereotactic Core Biopsy on the right side. 01/12/2020, MG discontinued stereo core LT on the left side. Prior Study Comparison: 01/31/2013 Bilateral Screening Mammogram, [facility]. 10/27/2019 Bilateral Screening Mammogram, [facility]. 11/13/2019 Bilateral Diagnostic Mammogram, [facility]. 01/26/2020 Bilateral Diagnostic Breast MRI, [facility]. 02/01/2020 Left Diagnostic Ultrasound, [facility]. 11/13/2020 Bilateral Diagnostic Mammogram, [facility]. 11/13/2020 Left Diagnostic Ultrasound, [facility]. 09/18/2021 Bilateral MG 3D diag mammo w/cad [facility], [facility]. Tissue Density: The breast tissue is heterogeneously dense. This may lower the sensitivity of mammography. Findings: Analyzed By CAD. Post treatment changes are redemonstrated within the left breast with architectural distortion. 2 biopsy clips are identified within the right breast. Benign-appearing calcifications are redemonstrated within both breasts. No new suspicious masses within either breast or groups of calcifications. Overall Assessment: Benign, BI-RAD 2 Management: Diagnostic Mammogram of both breasts in 1 year. A clinical breast exam by your physician is recommended on an annual basis and results should be correlated with mammographic findings. This exam should not preclude additional follow-up of suspicious palpable abnormalities. Results were given to the patient verbally at the time of exam. Electronically signed and approved by: Aakash Winslow D.O.
== END | disposition home or self-care (01) ==
LOC: RADMAMWWP 13:00
PROVIDERS: ATTEND Surgery
DX: R92.8 Other abnormal and inconclusive findings on diagnostic imaging of breast (principal); Z85.3 Personal history of malignant neoplasm of breast; Z78.0 Asymptomatic menopausal state
CPT/HCPCS: 77062; 77066

== ENCOUNTER → 2022-10-08 | Outpatient (CLI) | payer BC ==
[2022-10-08 14:12] VITALS: BP 127/78; PULSE 90; RESP 17; TEMP 98.3
--- NOTE | 2022-10-08 14:34 | P.PN ---
Subjective Progress Note Date: 10/08/22 Principal diagnosis: left breast DCIS left breast DCIS Tylor is a 62-year-old white female status post left breast lumpectomy, sentinel node biopsy on for ductal carcinoma in situ. The tumor was ER/PA positive. Margins revealed DCIS less than 1 millimeter from the posterior margin and inferior margins multifocally. She therefore underwent a reexcision of the inferior margin which revealed focal grade 2 DCIS adjacent to the previous site, new inferior margin was negative. This was on [id number]. She subsequently underwent radiation therapy. Her last bilateral mammogram was on 10-08-22. This was benign BIRADS 2. Patient developed a seroma after the lumpectomy. This drained for several months and has stopped draining. She does have some postop changes with scarring and radiation changes at the site of the lumpectomy. She saw a medical oncologist in [place] and is presently on Anestrazole. She is tolerating this without difficulty. Dr. Reba Mcgowan from [place] with [facility] She is not complaining of anything lumps masses or nodules in either breast. She is tolerating the anastrozole with no difficulty. Family History: none Hormonal History: menarche: 10 , 1 Ab, first born at 30, breast fed: no menopause: ablation 48 BCP: 14 years hormones: none Surgical history: Cervical spine no restrictions Medical history: HTN DM panic attacks Social history: Smoke: Stopped 13 years ago Alcohol: Occasional Drugs: Marijuana several times a month - Constitutional Constitutional: Denies chills, Denies fever - EENT Eyes: denies blurred vision, denies pain Ears: deny: decreased hearing, tinnitus Ears, nose, mouth and throat: Denies headache, Denies sore throat - Breasts Breasts: bilateral: as per HPI - Cardiovascular Cardiovascular: Reports high blood pressure, Denies chest pain, Denies shortness of breath - Respiratory Respiratory: Denies cough - Gastrointestinal Gastrointestinal: Denies abdominal pain, Denies diarrhea, Denies nausea, Denies vomiting - Menstruation Menstruation: Reports postmenopausal - Musculoskeletal Comment: Cervical spine surgery Musculoskeletal: Reports myalgias - Integumentary Integumentary: Denies pruritus, Denies rash - Neurological Neurological: Reports numbness, Reports weakness - Psychiatric Psychiatric: Reports anxiety - Endocrine Endocrine: Denies fatigue, Denies weight change - Hematologic/Lymphatic Hematologic/Lymphatic: Reports as per HPI - Allergic/Immunologic Allergic/Immunologic: Reports as per HPI Objective - Vital Signs Vital signs: Vital Signs Temp 98.3 F 10/08/22 14:09 Pulse 90 10/08/22 14:09 Resp 17 10/08/22 14:09 BP 127/78 10/08/22 14:09 Pulse Ox 96 10/08/22 14:09 FiO2 Intake & Output 10/07/22 10/08/22 10/08/22 18:59 06:59 18:59 Weight 80.286 kg - Constitutional General appearance: Present: cooperative - EENT Eyes: Present: EOMI ENT: Present: hearing grossly normal - Neck Neck: Present: normal ROM - Respiratory Respiratory: bilateral: CTA - Cardiovascular Rhythm: regular Heart sounds: normal: S1, S2 - Gastrointestinal General gastrointestinal: Present: soft - Integumentary Integumentary: Present: normal turgor - Musculoskeletal Musculoskeletal: Present: gait normal - Psychiatric Psychiatric: Present: A&O x's 3, appropriate affect, intact judgment & insight - Additional findings Additional findings: Breast Exam; BRA: 38C inspection: Left breast postop and radiation changes otherwise no lesions of concern Palpation: Right breast: multi-Positional exam fibrocystic changes no dominant masses or nodules of concern Right axilla: No adenopathy of concern Left breast: Postop postradiation changes in the medial upper quadrant otherwise no dominant masses or nodules of concern Left axilla: No adenopathy of concern Assessment and Plan Assessment: Impression: Patient status post left breast lumpectomy radiation therapy for DCIS she is presently on anastrozole no evidence of recurrent disease Recent bilateral mammogram [id number] benign BIRADS 2 Plan: Continue anastrozole Bilateral mammogram in 1 year Follow-up for surveillance in 6 months CC: Dr. Rausch Additional CC's: Carlos Rausch
== END ==
LOC: WWCWWP 13:04
PROVIDERS: ATTEND Surgery
DX: D05.12 Intraductal carcinoma in situ of left breast (principal); I10 Essential (primary) hypertension; Z79.811 Long term (current) use of aromatase inhibitors; Z92.3 Personal history of irradiation; Z90.12 Acquired absence of left breast and nipple; E11.9 Type 2 diabetes mellitus without complications; Z17.0 Estrogen receptor positive status [ER+]; Z79.4 Long term (current) use of insulin; Z79.84 Long term (current) use of oral hypoglycemic drugs

== ENCOUNTER 2023-12-20 10:55 | Emergency (ER) | payer OTHER, MEDICARE ==
[2023-12-20 11:03] VITALS: RESP 18; TEMP 98.2
--- NOTE | 2023-12-20 11:32 | ED ---
Fall HPI - General Chief Complaint: Fall Stated Complaint: Fall, left hand injury, face injury Time Seen by Provider: 12/20/23 11:29 Source: patient, RN notes reviewed Mode of arrival: ambulatory - History of Present Illness Initial Comments: 63-year-old female presented to the ER with a chief complaint of a fall. Patient states she was walking on uneven sidewalk this morning when she excellently tripped and fell. She states she that she "face planted". She denies any loss of consciousness or blood thinner use. Denies any dizziness, lightheadedness, chest pain or shortness of breath prior to fall. She was reporting most of her pain in her left wrist. She denies any nausea, vomiting, neck pain, abdominal pain, chest pain or shortness of breath currently. Denies any tingling to left upper extremity. She has not taken anything for pain at this time. Tetanus is up-to-date. Patient does state that she broke her front tooth. - Related Data Home Medications Medication Instructions Recorded Confirmed FLUoxetine HCL [PROzac] 80 mg PO QAM 10/16/16 10/08/22 Insulin Glargine,Hum.rec.anlog 28 units SQ HS 10/16/16 10/08/22 [[place] Solostar] Rosuvastatin Calcium [Crestor] 5 mg PO QAM 10/16/16 10/08/22 metFORMIN HCL [Glucophage] 1,000 mg PO BID 10/16/16 10/08/22 Insulin Regular, Human [NovoLIN R] 6 unit SQ AC-TID 12/12/19 10/08/22 Losartan [Cozaar] 25 mg PO QAM 12/22/19 10/08/22 Ascorbic Acid [Vitamin C] 500 mg PO QAM 02/05/20 10/08/22 L.acidoph,Paracasei, B.lactis 1 each PO QAM 02/05/20 10/08/22 [Probiotic] Multivitamins, Thera [Multivitamin 1 tab PO QAM 02/05/20 10/08/22 (formulary)] Anastrozole [Arimidex] 1 mg PO QAM 10/17/20 10/08/22 Previous Rx's Medication Instructions Recorded Amoxicillin 500 mg PO BID #20 capsule 12/20/23 Allergies Allergy/AdvReac Type Severity Reaction Status Date / Time No Known Allergies Allergy Verified 12/20/23 11:03 Review of Systems ROS Statement: Those systems with pertinent positive or pertinent negative responses have been documented in the HPI. ROS Other: All systems not noted in ROS Statement are negative. Past Medical History Past Medical History: Diabetes Mellitus, Hyperlipidemia, Hypertension Additional Past Medical History / Comment(s): Lt Breast cancer History of Any Multi-Drug Resistant Organisms: None Reported Past Surgical History: Back Surgery, Breast Surgery, Uterine Ablation Additional Past Surgical History / Comment(s): through neck 2019. lt breast lumpectomy Past Anesthesia/Blood Transfusion Reactions: No Reported Reaction Past Psychological History: Anxiety Smoking Status: Former smoker Past Alcohol Use History: Rare Past Drug Use History: Marijuana - Past Family History Mother Family Medical History: No Reported History Father Family Medical History: CVA/TIA, Diabetes Mellitus General Exam Limitations: no limitations General appearance: alert, in no apparent distress Head exam: Present: atraumatic, normocephalic, normal inspection Eye exam: Present: normal appearance, PERRL, EOMI. Absent: scleral icterus, conjunctival injection, periorbital swelling Pupils: Present: normal accommodation ENT exam: Present: normal exam, normal oropharynx (Fractured central incisor right), mucous membranes moist Neck exam: Present: normal inspection. Absent: tenderness, meningismus, lymphadenopathy Respiratory exam: Present: normal lung sounds bilaterally. Absent: respiratory distress, wheezes, rales, rhonchi, stridor Cardiovascular Exam: Present: regular rate, normal rhythm, normal heart sounds. Absent: systolic murmur, diastolic murmur, rubs, gallop, clicks Extremities exam: Present: tenderness (Left radial styloid. There is significant edema. 2+ left radial pulse. Limited range of motion due to pain. Positive anatomical snuffbox tenderness.) Neurological exam: Present: alert, oriented X3, CN II-XII intact Skin exam: Present: warm, dry, intact, normal color, other (Abrasion to upper lip and nasal bridge. No focal nasal bone tenderness. No active bleeding.). Absent: rash Course Vital Signs 12/20/23 12/20/23 11:00 13:37 Temperature 98.2 F Pulse Rate 94 87 Respiratory 18 18 Rate Blood Pressure 148/83 124/80 O2 Sat by Pulse 97 98 Oximetry Procedures - Orthopedic Splinting/Casting Injury #1 Side: left Upper Extremity Injury Location: wrist Upper Extremity Immobilizer: sugar tong splint Medical Decision Making - Medical Decision Making Was pt. sent in by a medical professional or institution (, JULIANE, INFLATABLE BUILDINGS LAMINATOR, urgent care, hospital, or correction...) When possible be specific @ -No Did you speak to anyone other than the patient for history (EMS, parent, family, police, friend...)? What history was obtained from this source @ -No Did you review nursing and triage notes (agree or disagree)? Why? @ -I reviewed and agree with nursing and triage notes Were old charts reviewed (outside hosp., previous admission, EMS record, old EKG, old radiological studies, urgent care reports/EKG's, correction records)? Report findings @ -No old charts were reviewed Differential Diagnosis (chest pain, altered mental status, abdominal pain women, abdominal pain men, vaginal bleeding, weakness, fever, dyspnea, syncope, headache, dizziness, GI bleed, back pain, seizure, CVA, palpatations, mental health, musculoskeletal)? @ -Fracture, dislocation, contusion, hematoma, intracranial hemorrhage, concussion, abrasion, laceration this list does not like to be all-inclusive EKG interpreted by me (3pts min.). @ -None none X-rays interpreted by me (1pt min.). @ -Left wrist and hand x-ray interpreted by me showing a distal radius fracture with volar angulation. CT interpreted by me (1pt min.). @ -None done U/S interpreted by me (1pt. min.). @ -None done What testing was considered but not performed or refused? (CT, X-rays, U/S, labs)? Why? @ -CT brain recommended due to head trauma. Patient refused. What meds were considered but not given or refused? Why? @ -Patient refused analgesic medications. Did you discuss the management of the patient with other professionals (professionals i.e. , JULIANE, INFLATABLE BUILDINGS LAMINATOR, lab, RT, psych nurse, social and human services assistant, operating room orderly, teacher, vessel traffic officer, employment evaluator/case manager)? Give summary @ -No Was smoking cessation discussed for >3mins.? @ -No Was critical care preformed (if so, how long)? @ -No Were there social determinants of health that impacted care today? How? (Homelessness, low income, unemployed, alcoholism, drug addiction, transportation, low edu. Level, literacy, decrease access to med. care, longterm, rehab)? @ -No Was there de-escalation of care discussed even if they declined (Discuss DNR or withdrawal of care, Hospice)? DNR status @ -No What co-morbidities impacted this encounter? (DM, HTN, Smoking, COPD, CAD, Cancer, CVA, ARF, Chemo, Hep., AIDS, mental health diagnosis, sleep apnea, morbid obesity)? @ -None Was patient admitted / discharged? Hospital course, mention meds given and route, prescriptions, significant lab abnormalities, going to OR and other pertinent info. @ -Discharge. 63-year-old female presented to ER with a chief complaint of a fall. History and physical exam completed. Vitals within normal limits. Patient in no signs of acute distress and nontoxic-appearing. No acute neurological findings on exam. Pupils equal round reactive. There is an abrasion to the nasal bridge with no focal bony tenderness. No evidence of septal hematoma. There is a another abrasion to upper lip with a fractured central incisor. Bilateral upper and lower extremities are neurovascularly intact. There is tenderness and edema to left wrist with a volar deformity. CT brain recommended due to facial injury and head trauma, patient refused. [place] head trauma rule negative. Patient is not on any blood thinners and denies any loss of consciousness. Patient's tetanus is up-to-date. Left wrist x-ray showing a distal radius fracture with volar angulation and mild displacement. Patient placed in a sugar-tong splint patient also given a shoulder sling for comfort. Advised close follow-up with orthopedics, referral given. Patient refused analgesic medications. Patient will be started on amoxicillin due to fractured tooth for infection prophylaxis. Advise close follow-up with a dentist for further evaluation of tooth. Strict return parameters discussed. Patient discharged in stable condition with follow-up to orthopedics, dentist and PCP. Patient verbally expressed understanding agree with care plan. Case discussed with ED attending, Dr. Vizcarra. Undiagnosed new problem with uncertain prognosis? @ -No Drug Therapy requiring intensive monitoring for toxicity (Heparin, Nitro, Insulin, Cardizem)? @ -No Were any procedures done? @ -Yes, orthopedics plan Diagnosis/symptom? @ -Distal radius fracture/fractured tooth/fall/minor head trauma/abrasion Acute, or Chronic, or Acute on Chronic? @ -Acute Uncomplicated (without systemic symptoms) or Complicated (systemic symptoms)? @ -Uncomplicated Side effects of treatment? @ -No Exacerbation, Progression, or Severe Exacerbation? @ -No Poses a threat to life or bodily function? How? (Chest pain, [place], [place], pneumonia, PE, COPD, DKA, ARF, appy, cholecystitis, CVA, Diverticulitis, Homicidal, Suicidal, threat to staff... and all critical care pts) @ -No - Radiology Data Radiology results: report reviewed, image reviewed Disposition Clinical Impression: Fall, Distal radius fracture, left, Fractured tooth, Abrasion, Minor head trauma Disposition: HOME SELF-CARE Condition: Stable Instructions (If sedation given, give patient instructions): Wrist Fracture in Adults (ED) Additional Instructions: Follow-up with orthopedics. Return to the ER for any new or worsening concerns. I recommend following up with a dentist for tooth fracture take full course of antibiotics. Prescriptions: Amoxicillin 500 mg PO BID #20 capsule Is patient prescribed a controlled substance at d/c from ED?: No Referrals: Nonstaff,Physician [Primary Care Provider] - 1-2 days Dyana Gandhi DO [Doctor of Osteopathic Medicine] - 1-2 days Markell Perales DDS [STAFF PHYSICIAN] - 1-2 days Lynne Griffin DDS [STAFF PHYSICIAN] - 1-2 days Time of Disposition: 12:56
--- NOTE | 2023-12-20 11:56 | XR ---
EXAMINATION TYPE: XR wrist complete LT, XR hand complete LT DATE OF EXAM: 12/20/2023 11:46 AM CLINICAL INDICATION: Female, 63 years old with history of pain s/p fall; [facility] COMPARISON: None TECHNIQUE: XR wrist complete LT, XR hand complete LT; examined in the Frontal, navicular, lateral, a nd oblique. FINDINGS/IMPRESSION: 1. Acute distal radius fracture with volar angulation and mild displacement. There is intra-articula r extension. 2. Multifocal degeneration changes of the joints of the wrist and hand.
[2023-12-20 13:39] VITALS: BP 124/80; PULSE 87
== END 2023-12-20 13:39 | disposition home or self-care (01) ==
LOC: EC 10:55
DX: S52.502A Unspecified fracture of the lower end of left radius, initial encounter for closed fracture (principal); S02.5XXA Fracture of tooth (traumatic), initial encounter for closed fracture; S00.91XA Abrasion of unspecified part of head, initial encounter; Z87.891 Personal history of nicotine dependence; W01.0XXA Fall on same level from slipping, tripping and stumbling without subsequent striking against object, initial encounter
CPT/HCPCS: 29125; 99283

== ENCOUNTER → 2023-12-22 | Outpatient (CLI) | payer MEDICARE, OTHER ==
--- NOTE | 2023-12-22 15:49 | CT ---
EXAMINATION TYPE: CT wrist LT wo con CT DLP: 99.5 mGycm, Automated exposure control for dose reduction was used. DATE OF EXAM: 12/22/2023 3:25 PM COMPARISON: . 12/20/2023 CLINICAL INDICATION: Female, 63 years old with history of S52.562A CABELLO'S FRACTURE OF LEFT RADIUS, INIT FO; [facility], left wrist fx TECHNIQUE: Axial images were obtained of the CT wrist LT wo con, Additional coronal and sagittal refo rmatted images and soft tissue and bone window were obtained for review. 3-D reconstruction was creat ed on a separate workstation. Contrast used: mL of , (None if empty) Oral contrast used: (None if empty) FINDINGS: Comminuted fracture of the radius with intraarticular extension. There is mild depression o f the articular surface up to 2 mm depression. Mild volar angulation. The ulna appears intact. The re mainder of the osseous structures appear intact. Multifocal degeneration of the wrist is mild with os teophytes and joint space narrowing. Film is intact. IMPRESSION: Volar angulated distal intra-articular radius fracture with mild depression of 2 mm of the articular surface.
== END | disposition home or self-care (01) ==
LOC: RADCTMAIN 15:00
PROVIDERS: ATTEND Orthopaedic Surgery
DX: S52.562A Barton's fracture of left radius, initial encounter for closed fracture